=== PATIENT | male | born 1960 | race Caucasian/White ===

== ENCOUNTER 2016-12-06 08:41 | Emergency (ER) | payer BC ==
[~2016-12-06] VITALS: Ht 180.3 cm; Wt 84.7 kg
[~2016-12-06 08:41] MED LIST: APIX1TAB3 PO; BTP80 PO
[2016-12-06 08:46] VITALS: TEMP 36.6; Ht 180.3 cm; Wt 84.7 kg
[2016-12-06] MEDS ORDERED: CEPHALEXIN MONOHYDRATE 250 MG CAP PO ONE (09:30)
[2016-12-06] MEDS ORDERED: DIPHTHERIA/TETANUS/PERTUSSIS 0.5 ML SYR/VIAL IM. ONE (09:30)
[2016-12-06] MEDS ORDERED: CEPH500C PO (09:46)
--- NOTE | 2016-12-06 09:46 | EMERGENCY ROOM VISIT NOTE ---
ED Visit Note First contact with patient: 08:49 Chief Complaint: RIGHT Hand Laceration History of Present Illness: This patient is a 55-year-old male who presents to the Emergency Department this morning for evaluation of their RIGHT laceration. Patient sustained the laceration while using a sharpener to sharpen the blades of a planer. This occurred at 8:30 last evening. They report a moderate amount of bleeding initially. They deny any numbness or tingling into the distal extremity. They report no decreased range of motion of the affected digit. They have tried nothing for the pain. Patient rates his current discomfort as a 4/10. Patient is currently on Coumadin for atrial fibrillation. He woke today and his thought that maybe he should have the wound evaluated. He denies any redness, swelling, discharge, or drainage. Patient's Tetanus status is not currently up-to-date. Medications: Reviewed and discussed with the patient. Allergies: Statins PMH: No pertinent past medical history. SHx: Patient is a 55-year-old male who lives locally. ROS: All pertinent positive and negative review of systems are appropriately documented in the History of Present Illness. Physical Exam: VITAL SIGNS - Vital signs and nursing notes were reviewed. GENERAL - 55-year-old male appearing his stated age who is in no acute distress. Communicates well with provider and answers questions appropriately. SKIN - There is a 2.5 cm long laceration noted over the MCP of the RIGHT fifth digit. The wound has begun to heal with mild serosynovitis discharge noted. Wound does not gape open with traction. No active bleeding noted. No surrounding erythema or purulent discharge. MUSCULOSKELETAL - Laceration as described above. +5/5 strength appreciated of the affected digit. Full range of motion of the affected digit. NEUROLOGIC - Spinothalamic tract was found to be intact with ability to discriminate sharp versus dull sensation. No sensory defects of the dorsal column were appreciated utilizing light touch for evaluation. VASCULAR - Capillary refill was brisk. ED Course: Patient was seen and evaluated by myself. I had a lengthy discussion with the patient regarding symptoms and treatment. Given the delayed treatment sought out for the laceration, I do feel the closure is not the best idea as certainly the patient is at greater risk for developing secondary infection. I did discuss this with the patient. The wound was cleansed with Betadine and Steri- Strips were placed for comfort. Patient was provided a splint to help decrease wound dehiscence. He was provided a prescription for Keflex. He received his Adacel vaccination in the emergency department. Patient was educated on worrisome symptoms for return visit to the emergency department. Patient discharged home in good condition. Impression: RIGHT Hand Laceration with Delay in Treatment Discharge Instructions: You've been seen in the emergency department today for a laceration of the RIGHT hand. Please allow the Steri-Strips to remain in place for the next several days. Please wear the splint for comfort until the sutures are removed. Proper wound care is essential for adequate wound healing and infection prevention. You can shower and clean the wound with soap and water. Do not scour over the wound, pat dry with a towel. Do not submerse the wound (i.e. bathe or dish wash) until the sutures have been removed. You can use an antibiotic ointment with a dressing over the wound for the next 3-4 days. After this time you may leave the wound dry and open to the air. If crust develops over the wound you can use a Q-tip to apply a 1:1 peroxide:water solution to clean the wound. Look for signs of infection of the wound including: increased pain, swelling, foul discharge, streaking, or increased temperature. If any of these are noticed you should return to the Emergency Department for further assessment and treatment. As with any laceration you may have received nerve damage to the surrounding tissues. This damage may or may not be permanent. You should keep the area covered with sunscreen for the first 6 months to 1 year when at risk for exposure to help minimize scarring. You can also use scar reducing creams or Vitamin E oil to help minimize scarring. You were prescribed Keflex to be taken as prescribed. This is an antibiotic. All antibiotics have the potential to cause diarrhea. Stop this medication and contact a medical provider if you were to develop any significant adverse side effects including: wheezing, shortness of breath, passing out, vomiting, or a diffuse rash. Always take antibiotics as directed and COMPLETE the ENTIRE course regardless of the improvement of your symptoms. For pain control, you can use the following offj-vzy-bbbqcoy medicines (if >12 yo): - Regular strength (325mg/tab) Tylenol (acetaminophen) 2 tabs every 4-6 hours as needed. Do not exceed 12 tablets in a 24 hour period. Avoid taking more than 4 grams (4000 mg) of Tylenol per day. This includes any other sources of acetaminophen you may take on a regular basis. - Regular strength (200 mg/tab) Advil (ibuprofen) 1-2 tabs every 4-6 hours as needed. Do not exceed a dose of 3200 mg per day. Return to the emergency department if your symptoms worsen despite treatment course outlined above. Problem List Medical Problems: (1) History of cardioversion Status: Chronic (2) HTN (hypertension) Status: Chronic (3) Hyperlipidemia Status: Chronic (4) Paroxysmal atrial fibrillation Status: Chronic Surgical Problems: (1) H/O colonoscopy Status: Chronic (2) H/O eye surgery Status: Chronic (3) History of dental surgery Status: Chronic (4) S/P surgical manipulation of ankle joint Status: Chronic Current/Historical Medications Scheduled Apixaban (Eliquis), 5 MG PO BID Cephalexin Monohydrate (Keflex), 500 MG PO QID Sotalol HCl (Sotalol HCl), 80 MG PO BID Allergies Coded Allergies: Statins (Verified Allergy, Severe, MUSCLE CRAMPS, WEAKNESS, 10/05/16) Vital Signs Date Time Temp Pulse Resp B/P Pulse Ox O2 Delivery O2 Flow Rate FiO2 12/06/16 10:07 49 16 161/92 98 12/06/16 08:46 36.6 56 18 158/96 98 Room Air Medications Administered Medications (Trade) Dose Ordered Sig/Juventino Route Start Time Stop Time Status Last Admin Dose Admin Cephalexin Monohydrate (Keflex Cap) 500 mg NOW ONCE PO 12/06/16 09:30 12/06/16 09:34 DC 12/06/16 09:58 500 MG Diphtheria/ Pertussis/Tetanus Vacc (Adacel Inj) 0.5 ml ONCE ONCE IM. 12/06/16 09:30 12/06/16 09:34 DC 12/06/16 09:59 0.5 ML Departure Information Impression Primary Impression: Laceration of right hand with delay in treatment Dispostion Home / Self-Care Condition GOOD Prescriptions Cephalexin Monohydrate (Keflex) 500 Mg Cap 500 MG PO QID for 7 Days, #28 CAP Prov: Dave Miranda, PAGeorges 12/06/16 Referrals Jaime Samuel III, M.D. (PCP) Patient Instructions My [facility] Additional Instructions You've been seen in the emergency department today for a laceration of the RIGHT hand. Please allow the Steri-Strips to remain in place for the next several days. Please wear the splint for comfort until the sutures are removed. Proper wound care is essential for adequate wound healing and infection prevention. You can shower and clean the wound with soap and water. Do not scour over the wound, pat dry with a towel. Do not submerse the wound (i.e. bathe or dish wash) until the sutures have been removed. You can use an antibiotic ointment with a dressing over the wound for the next 3-4 days. After this time you may leave the wound dry and open to the air. If crust develops over the wound you can use a Q-tip to apply a 1:1 peroxide:water solution to clean the wound. Look for signs of infection of the wound including: increased pain, swelling, foul discharge, streaking, or increased temperature. If any of these are noticed you should return to the Emergency Department for further assessment and treatment. As with any laceration you may have received nerve damage to the surrounding tissues. This damage may or may not be permanent. You should keep the area covered with sunscreen for the first 6 months to 1 year when at risk for exposure to help minimize scarring. You can also use scar reducing creams or Vitamin E oil to help minimize scarring. You were prescribed Keflex to be taken as prescribed. This is an antibiotic. All antibiotics have the potential to cause diarrhea. Stop this medication and contact a medical provider if you were to develop any significant adverse side effects including: wheezing, shortness of breath, passing out, vomiting, or a diffuse rash. Always take antibiotics as directed and COMPLETE the ENTIRE course regardless of the improvement of your symptoms. For pain control, you can use the following uojm-rdo-reauhpf medicines (if >12 yo): - Regular strength (325mg/tab) Tylenol (acetaminophen) 2 tabs every 4-6 hours as needed. Do not exceed 12 tablets in a 24 hour period. Avoid taking more than 4 grams (4000 mg) of Tylenol per day. This includes any other sources of acetaminophen you may take on a regular basis. - Regular strength (200 mg/tab) Advil (ibuprofen) 1-2 tabs every 4-6 hours as needed. Do not exceed a dose of 3200 mg per day. Return to the emergency department if your symptoms worsen despite treatment course outlined above. Problem Qualifiers Primary Impression: Laceration of right hand with delay in treatment Encounter type: initial encounter Qualified Codes: S61.411A - Laceration without foreign body of right hand, initial encounter
[2016-12-06 10:07] VITALS: BP 161/92; PULSE 49; O2SAT 98
== END 2016-12-06 10:09 | disposition home or self-care (01) ==
LOC: C.EDB 08:42 → C.EDA 10:09
DX: S61.411A Laceration without foreign body of right hand, initial encounter (principal); E78.5 Hyperlipidemia, unspecified; I48.0 Paroxysmal atrial fibrillation; I10 Essential (primary) hypertension; W27.8XXA Contact with other nonpowered hand tool, initial encounter; Y93.H3 Activity, building and construction; Y92.89 Other specified places as the place of occurrence of the external cause; Y99.8 Other external cause status

== ENCOUNTER 2017-04-20 07:28 | Emergency (ER) | payer BC ==
[~2017-04-20] VITALS: Ht 180.3 cm; Wt 84.0 kg
[2017-04-20] MEDS ORDERED: SODIUM CHLORIDE 0.9% 1000ML 1,000 ML IV STA (07:40)
[2017-04-20] MEDS ORDERED: METOPROLOL TARTRATE 1 MG/ML VIAL IV STA (07:40)
--- NOTE | 2017-04-20 07:45 | EMERGENCY ROOM VISIT NOTE ---
History First contact with patient: 07:33 Chief Complaint: CARDIAC ASSESSMENT Stated Complaint: A FIB Nursing Triage Summary: triage note: pt reports "i am in a-fib again, it started around 0430." pt reports he had heart ablasion done on mar 28 2017 at [facility] [place]. History of Present Illness The patient is a 56 year old male who presents to the Emergency Room with complaints of chest pressure and irregular heartbeat. The patient has a history of paroxysmal atrial fibrillation. He has been admitted several times in the past. He had been on metoprolol and then switched to sotalol. He has had direct A/C cardioversion on several occasions. He underwent heart ablation on March 28 at [facility] by Dr. bryan. He is not taking Beta Ponce now. He is taking Eliquis and has not missed any doses. He states that he has done well until this morning around 4:30 AM. He states that he felt himself go into atrial fibrillation. He reports associated heart pressure and describes it as palpitations. He reports associated shortness of breath. He states that he recently had cataract surgery and has been on several eyedrops. He was also recently started on amlodipine but did not take it today. He denies any fevers, earache, sore throat or cough. He denies any abdominal pain , nausea or vomiting. He denies any extremity swelling. Review of Systems A 10 system review of systems was completed with positives and pertinent negatives listed in the HPI. Past Medical/Surgical History Medical Problems: (1) ankle restructure (2) History of cardioversion (3) HTN (hypertension) (4) Hyperlipidemia (5) Paroxysmal atrial fibrillation Surgical Problems: (1) H/O colonoscopy (2) H/O eye surgery (3) History of dental surgery (4) S/P surgical manipulation of ankle joint Family History FH: arrhythmia FATHER FH: heart failure MOTHER (right sided HF) Social History Smoking Status: Never Smoker Alcohol Use: occasionally Drug Use: none Marital Status: Housing Status: lives with significant other Occupation Status: employed Current/Historical Medications Scheduled Amlodipine (Norvasc), 5 MG PO DAILY Apixaban (Eliquis), 5 MG PO BID Carvedilol (Coreg), 1 TAB PO BID Allergies Coded Allergies: Statins (Verified Allergy, Severe, MUSCLE CRAMPS, WEAKNESS, 04/20/17) Physical Exam Vital Signs Date Time Temp Pulse Resp B/P (MAP) Pulse Ox O2 Delivery O2 Flow Rate FiO2 04/20/17 11:00 62 16 142/86 (104) 96 Room Air 04/20/17 10:45 66 16 132/88 (103) 96 Room Air 04/20/17 10:30 68 16 138/93 (108) 96 Room Air 04/20/17 10:25 68 16 114/89 (97) 96 Room Air 04/20/17 10:15 68 16 114/88 (97) 96 Room Air 04/20/17 10:10 66 16 114/80 (91) 96 Room Air 04/20/17 10:05 65 16 114/82 (93) 96 Room Air 04/20/17 10:00 66 16 112/68 (83) 96 Room Air 04/20/17 09:55 86 16 101/72 (82) 96 Room Air 04/20/17 09:50 86 16 104/79 (87) 96 Room Air 04/20/17 09:47 80 16 118/80 99 Nasal Cannula 6 04/20/17 09:46 133 16 114/82 99 Nasal Cannula 6 04/20/17 09:17 36.7 133 16 144/88 100 Nasal Cannula 4 04/20/17 08:44 121 17 102/83 95 Room Air 04/20/17 08:07 129 17 134/98 96 Room Air 04/20/17 08:00 139 16 123/89 96 Room Air 04/20/17 07:53 139 16 135/95 98 Room Air 04/20/17 07:47 132 141/103 04/20/17 07:46 160 04/20/17 07:31 36.7 141 18 153/114 95 Room Air Physical Exam VITALS: Vitals are noted on the nurse's note and reviewed by myself. The patient is hypertensive and tachycardic. His blood pressure is 153/114 and his heart rate is 141 bpm. GENERAL: This is a 56-year-old male, in no acute distress, nondiaphoretic, well- developed well-nourished. SKIN: The skin was without rashes, erythema, edema, or bruising. There is no tenting of the skin. Capillary reflex less than 2 seconds. HEAD: Normocephalic atraumatic. EARS: External ears are normal in appearance. EYES: Pupils equal round and reactive to light and accommodation. Conjunctivae without injection, sclerae without icterus. Extraocular movements intact. NOSE: Patent, turbinates without inflammation or discharge. MOUTH: Mucous membranes moist. Tonsils are not enlarged. Pharynx without erythema or exudate. Uvula midline. Airway patent. Tongue does not deviate. NECK: Supple without nuchal rigidity. No lymphadenopathy. No thyromegaly. Cervical spine is nontender. No JVD. HEART: Fast rate, irregularly irregular rhythm. No rubs, murmurs or gallops. LUNGS: Clear to auscultation bilaterally without wheezes, rales or rhonchi. No retractions or accessory muscle use. ABDOMEN: Positive bowel sounds x 4. Soft, nontender, without masses or organomegaly. Malcolm sign negative. MUSCULOSKELETAL: No muscle atrophy, erythema, or edema noted. Full range of motion in all extremities. Strength 5/5 throughout. NEURO: Patient was alert and oriented to person place and time. No focal neurological deficits. Medical Decision & Procedures ER Provider Diagnostic Interpretation: CHEST ONE VIEW PORTABLE CLINICAL HISTORY: chest pressure, a fib COMPARISON STUDY: 10/05/2016 FINDINGS: The bones soft tissues and hemidiaphragms are normal. The cardiomediastinal silhouette is normal. The lungs are clear. The pulmonary vasculature is normal. IMPRESSION: Negative chest. Laboratory Results 04/20/17 07:35 Red Blood Count 5.12, Mean Corpuscular Volume 89.5, Mean Corpuscular Hemoglobin 31.8, Mean Corpuscular Hemoglobin Concent 35.6, Mean Platelet Volume 10.0, Neutrophils (%) (Auto) 63.9, Lymphocytes (%) (Auto) 21.5, Monocytes (%) (Auto) 11.8, Eosinophils (%) (Auto) 2.0, Basophils (%) (Auto) 0.6, Neutrophils # (Auto ) 4.06, Lymphocytes # (Auto) 1.37, Monocytes # (Auto) 0.75, Eosinophils # (Auto ) 0.13, Basophils # (Auto) 0.04 04/20/17 07:35 Test 04/20/17 07:35 White Blood Count 6.36 K/uL (4.8-10.8) Red Blood Count 5.12 M/uL (4.7-6.1) Hemoglobin 16.3 g/dL (14.0-18.0) Hematocrit 45.8 % (42-52) Mean Corpuscular Volume 89.5 fL (80-100) Mean Corpuscular Hemoglobin 31.8 pg (25-34) Mean Corpuscular Hemoglobin Concent 35.6 g/dl (32-36) Platelet Count 166 K/uL (130-400) Mean Platelet Volume 10.0 fL (7.4-10.4) Neutrophils (%) (Auto) 63.9 % Lymphocytes (%) (Auto) 21.5 % Monocytes (%) (Auto) 11.8 % Eosinophils (%) (Auto) 2.0 % Basophils (%) (Auto) 0.6 % Neutrophils # (Auto) 4.06 K/uL (1.4-6.5) Lymphocytes # (Auto) 1.37 K/uL (1.2-3.4) Monocytes # (Auto) 0.75 K/uL (0.11-0.59) Eosinophils # (Auto) 0.13 K/uL (0-0.5) Basophils # (Auto) 0.04 K/uL (0-0.2) RDW Standard Deviation 41.8 fL (36.4-46.3) RDW Coefficient of Variation 12.8 % (11.5-14.5) Immature Granulocyte % (Auto) 0.2 % Immature Granulocyte # (Auto) 0.01 K/uL (0.00-0.02) Prothrombin Time 10.4 SECONDS (9.0-12.0) Prothromb Time International Ratio 1.0 (0.9-1.1) Activated Partial Thromboplast Time 29.4 SECONDS (21.0-31.0) Partial Thromboplastin Ratio 1.1 Anion Gap 9.0 mmol/L (3-11) Est Creatinine Clear Calc Drug Dose 91.5 ml/min Estimated GFR () 102.0 Estimated GFR (Non- 88.0 BUN/Creatinine Ratio 14.2 (10-20) Calcium Level 8.5 mg/dl (8.5-10.1) Magnesium Level 1.9 mg/dl (1.8-2.4) Total Bilirubin 0.5 mg/dl (0.2-1) Aspartate Amino Transf (AST/SGOT) 18 U/L (15-37) Alanine Aminotransferase (ALT/SGPT) 29 U/L (12-78) Alkaline Phosphatase 101 U/L (45-117) Total Creatine Kinase 88 U/L (39-308) Creatine Kinase MB 1.7 ng/ml (0.5-3.6) Creatine Kinase MB Ratio 1.9 (0-3.0) Troponin I < 0.015 ng/ml (0-0.045) Total Protein 7.1 gm/dl (6.4-8.2) Albumin 3.8 gm/dl (3.4-5.0) Globulin 3.3 gm/dl (2.5-4.0) Albumin/Globulin Ratio 1.2 (0.9-2) Medications Administered Medications (Trade) Dose Ordered Sig/Juventino Route Start Time Stop Time Status Last Admin Dose Admin Sodium Chloride 1,000 ml @ 999 mls/hr Q1H1M STAT IV 04/20/17 07:40 04/20/17 08:40 DC 04/20/17 07:48 999 MLS/HR Metoprolol Tartrate (Lopressor Iv) 15 mg NOW STAT IV 04/20/17 07:40 04/20/17 07:42 DC 04/20/17 07:47 5 MG Procedure The patient was monitored on a monitoring analyst. This reveals atrial fibrillation with rapid ventricular response. ECG Indication: palpitations Rate (beats per minute): 150 Rhythm: atrial fibrillation Findings: no acute ischemic change Change: Previous tracings have indicated a fib ED Course The patient was seen and examined. Previous visits were reviewed. The patient does not have a fever or leukocytosis. He does not have any significant electrolyte abnormalities. Troponin was not elevated. Cardiac enzymes were not elevated. INR was 1.0. EKG reveals atrial fibrillation with rapid ventricular response. The patient's rate was as high as 160 bpm. The patient was given a total of 15 mg IV Lopressor in 5 mg doses. The A. fib with rapid ventricular response persisted but the rate was slightly improved around 120 bpm. I discussed the case with Dr. Webster. He plan to take the patient for cardioversion today. The patient was advised of this. The case was discussed with Dr. Quan who agrees with the assessment and treatment plan. Medical Decision DIFFERENTIAL DIAGNOSIS: Aortic dissection, myocarditis, pericarditis, cervical disc disease, costochondritis, herpes zoster, rib fracture, pleuritis, pneumonia , pulmonary embolus, tension pneumothorax, anxiety disorder, somatoform disorder , choledocholithiasis, status, esophagitis, esophageal spasm, esophageal reflux , esophageal rupture, pancreatitis, peptic ulcer disease, cardiac ischemia, ST elevation [place], acute coronary syndrome, arrhythmia, coronary artery vasospasm. vavular heart disease, coronary artery disease, among others. Impression Primary Impression: Atrial fibrillation with rapid ventricular response Additional Impression: Substernal chest pain Critical Care I have personally spent greater than 35 minutes of critical care time in the direct management of this patient. This includes bedside care, interpretation of diagnostic studies, and testing, discussion with consultants, patient, and family members, and other required patient management activities. This 30 minutes is in excess of all separately billable procedures. Departure Information Prescriptions Carvedilol (COREG) 3.125 Mg Tab 1 TAB PO BID for 30 Days, #60 TAB 3 Refills Prov: Kam Webster M.D. 04/20/17 Referrals Jaime Samuel III, M.D. (PCP) Patient Instructions My [facility] Problem Qualifiers
[2017-04-20] MEDS ORDERED: AMLO-110 PO (07:49)
[2017-04-20 07:52] LABS: BASO % 0.6 %; BASO ABS # 0.04 K/uL (0-0.2); COMPLETE YES; HEMATOCRIT 45.8 % (42-52); IG% 0.2 %; LYMPH % 21.5 %; LYMPH ABS # 1.37 K/uL (1.2-3.4); MEAN CELL VOLUME 89.5 fL (80-100); MEAN CORPUSCULAR HEMOGLOBIN 31.8 pg (25-34); MEAN CORPUSCULAR HGB CONC 35.6 g/dl (32-36); MONO % 11.8 %; NEUT % 63.9 %; PLATELET COUNT 166 K/uL (130-400); RED BLOOD COUNT 5.12 M/uL (4.7-6.1); WHITE BLOOD COUNT 6.36 K/uL (4.8-10.8)
[2017-04-20 08:02] LABS: PARTIAL THROMBOPLASTIN RATIO 1.1; PROTHROMBIN TIME (PATIENT) 10.4 SECONDS (9.0-12.0)
[2017-04-20 08:15] LABS: ALT/SGPT 29 U/L (12-78); BLOOD UREA NITROGEN 14 mg/dl (7-18); BUN/CREATININE RATIO 14.2 (10-20); CARBON DIOXIDE 24 mmol/L (21-32); CHLORIDE 110 mmol/L (98-107); CREATININE 0.96 mg/dl (0.60-1.40); GLUCOSE 112 mg/dl (70-99); MAGNESIUM 1.9 mg/dl (1.8-2.4); POTASSIUM 4.2 mmol/L (3.5-5.1); SODIUM 143 mmol/L (136-145)
--- NOTE | 2017-04-20 08:18 | DIAGNOSTIC IMAGING REPORT ---
CHEST ONE VIEW PORTABLE CLINICAL HISTORY: chest pressure, a fib COMPARISON STUDY: 10/05/2016 FINDINGS: The bones soft tissues and hemidiaphragms are normal. The cardiomediastinal silhouette is normal. The lungs are clear. The pulmonary vasculature is normal. IMPRESSION: Negative chest. Electronically signed by: Ritchie Mendiola M.D. 04/20/2017 8:16 AM Dictated Date/Time: 04/20/2017 8:12 AM
[2017-04-20 08:20] LABS: ALB/GLOB RATIO 1.2 (0.9-2); ALKALINE PHOSPHATASE 101 U/L (45-117); AST/SGOT 18 U/L (15-37); CKMB/CK RATIO 1.9 (0-3.0)
[2017-04-20 08:22] LABS: CALCIUM 8.5 mg/dl (8.5-10.1)
[2017-04-20 08:44] VITALS: O2SAT 95
[2017-04-20 09:15] VITALS: Ht 180.3 cm; Wt 84.0 kg
[2017-04-20 09:17] VITALS: BP 144/88; PULSE 133; TEMP 36.7; O2SAT 100
--- NOTE | 2017-04-20 09:33 | CARDIOLOGY CONSULTATION ---
DATE OF CONSULTATION: 04/20/2017 DATE OF CONSULTATION: 04/20/2017. REFERRING: Adelaida Segura. INDICATIONS: Atrial fibrillation with rapid ventricular response. PRIMARY CARE PHYSICIAN: Dr. Samuel. HISTORY OF PRESENT ILLNESS: The patient is a 56-year-old male whose past history is notable for paroxysmal atrial fibrillation status post pulmonary vein isolation ablation on 03/28/2017, history of hypertension, hyperlipidemia who presents now noting last evening having awakened from sleep early with symptoms of heart palpitations and mild diaphoresis. He was found to be in atrial fibrillation, very rapid ventricular response. In the past, he has required antiarrhythmic therapy for control of rhythms with sotalol, though with poor tolerance of antiarrhythmic due to bradycardia and fatigue. At the time of his ablation sotalol was discontinued. He presents now to the Emergency Room in atrial fibrillation with rapid ventricular response. He has received 3 doses of IV metoprolol with little slowing of the heart. He notes no other complaints. Notes no shortness of breath. Notes no recent fevers, chills. Notes no productive cough. Notes no melena, hematochezia, dysuria or hematuria. Overall has been doing relatively well other than increase in blood pressure since discontinuing sotalol. He notes he was begun on amlodipine at time of hospital discharge and taking this without absolute control of hypertension per his description, otherwise has been feeling well. Notes no bleeding difficulties. Notes no headache or visual changes. Notes no acute neurologic complaints. Notes no exertional chest pains. ALLERGIES: NOTED TO BE ATORVASTATIN. MEDICATIONS: Prior to hospitalization were amlodipine 5 mg per day, Eliquis 5 mg twice per day. PAST SURGICAL HISTORY: Notable for prior cataract insertion on the right, pulmonary vein isolation ablation as described on 03/28/2017, ankle arthroscopic surgery in 2013, remote retinal vitrectomy in 1986. FAMILY HISTORY: Positive for paroxysmal atrial fibrillation. SOCIAL HISTORY: The patient is a nonsmoker, having discontinued in 1984. He uses occasional alcoholic beverages. PHYSICAL EXAMINATION: GENERAL: The patient is a pleasant, age appropriate male denying acute distress though heart rate ranges between 120 and 145 while lying supine in the Emergency Room, blood pressure is 108/60. HEAD, EYES, EARS, NOSE, AND THROAT EXAMINATION: Normocephalic, atraumatic. Nares without discharge. Throat was clear. NECK: Supple without thyromegaly, lymphadenopathy, JVD or bruit. LUNGS: Clear to auscultation. There is no rhonchi, rale or wheeze. CARDIOVASCULAR EXAMINATION: Irregular, irregular. There is no S3 gallop. There is no audible rub. PMI is nondisplaced. ABDOMEN: Soft, nontender, no palpable hepatosplenomegaly. There is no hepatojugular reflux. EXTREMITIES: Without cyanosis or clubbing. There is no peripheral edema. There are intact distal pulses 2/4. LABORATORY DATA: White cell count 6.3, hemoglobin 16.3, sodium is 143, potassium is 4.2, chloride is 110, bicarbonate 24, BUN is 14, creatinine 0.96, glucose is 112. CK-MB and troponins are normal. Albumin 3.8. Chest x-ray reveals normal size cardiac silhouette, no infiltrate. EKG reveals atrial fibrillation with rapid ventricular response, rate 150. IMPRESSION: A 56-year-old male with history of paroxysmal atrial fibrillation and recent pulmonary vein isolation ablation approximately 3 weeks prior with now relapse into atrial fibrillation off antiarrhythmic therapy. Discussed options of management. Recommend proceeding directly to synchronized electrical cardioversion. The patient has undergone similar procedures before. He is aware of risks of procedures and explained once again in detail. Informed consent obtained. Will plan on proceeding with cardioversion and adjusting medications as appropriate post procedure.
[2017-04-20 09:46] VITALS: BP 114/82; PULSE 133; O2SAT 99
[2017-04-20 09:47] VITALS: BP 118/80; PULSE 80; O2SAT 99
--- NOTE | 2017-04-20 09:53 | Cardiology Procedure Brief Nt ---
Preliminary Cardiology Note Procedure Date Apr 20, 2017. 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
[2017-04-20] MEDS ORDERED: CARV3.122 PO (10:46)
--- NOTE | 2017-04-20 10:49 | Discharge Instructions ---
Discharge Instructions Procedure Procedure Date: Apr 20, 2017. Reason for Visit: A FIB. Discharge Discharge Date: Apr 20, 2017. Discharge Diagnosis: Successful synchronized electrical cardioversion Problem List: Atrial fibrillation with rapid ventricular response Last Recorded Wt (Kilograms): 84 Anesthesia Post Anesthesia Instructions: If you have had General Anesthesia or IV Sedation: * Do not drive today. * Resume driving when surgeon permits. * Do not make important decisions or sign legal documents today. * Call surgeon for: 1. Temperature elevations greater than 101 degrees F. 2. Uncontrollable pain. 3. Excessive bleeding. 4. Persistent nausea and vomiting. 5. Medication intolerance (nausea, vomiting or rash). * For nausea and vomiting use only clear liquids such as: tea, soda, bouillon until nausea subsides, then gradually increase diet as tolerated. * If you have any concerns or questions, call your surgeon's office. If physician is unavailable and it is an emergency, call 911 or go to the nearest emergency room. Instructions Activity Recommendations: limitations as noted below Recommended Home Diet: resume previous diet Allergies: Coded Allergies: Statins (Verified Allergy, Severe, MUSCLE CRAMPS, WEAKNESS, 04/20/17) Provider Instructions ACTIVITY RECOMMENDATIONS: Resume activities as tolerated with no limitations unless specified. __ No lifting over __ pounds for 24 hours. __ Do not engage in vigorous exercise, sexual activity, or sports for 24 hours. __ Do not drive or operate any motorized equipment for 24 hours. __ You may return to work/school tomorrow. Follow Up Follow-up with: Dr Roman 04/25/2017 Kyree English Recommendations: Call your doctor if: * Temperature above 101 degrees * Pain not relieved by pain medicine ordered * There is increased drainage or redness from any incision * You have any unanswered questions or concerns. Your Doctors Instructions noted above were prepared by provider Kam Webster. Patient Signature Section: Patient Instructions Signature Page Sunil Oswald Patient (or Guardian) Signature/Date: I have read and understand the instructions given to me by my caregivers. Caregiver/RN/Doctor Signature/Date: The above-named patient and/or guardian has received patient instructions on this date. + Original Patient Signature Page (only) stays with chart. Please make copy for patient.
[2017-04-20 11:00] VITALS: BP 142/86; PULSE 62; O2SAT 96
[2017-04-20] MEDS ORDERED: CARVEDILOL 3.125 MG TAB PO ONE (11:00)
--- NOTE | 2017-04-20 12:34 | CARDIOVERSION ---
DATE OF OPERATION: 04/20/2017 SYNCHRONIZED ELECTRICAL CARDIOVERSION DATE OF PROCEDURE: 04/20/2017. INDICATIONS: Atrial fibrillation with rapid ventricular response. BRIEF HISTORY: The patient is a 56-year-old male with a history of paroxysmal atrial fibrillation status post pulmonary vein isolation ablation in March 2017. At that time antiarrhythmic therapy was held. He notes having done well until early this morning when he awakened with tachypalpitations and presented to the ER with atrial fibrillation with rapid ventricular response, rates 150-160. He is referred now for elective synchronized cardioversion. PROCEDURE: After the procedure and risks were explained in detail to the patient informed consent was obtained. Synchronized electrical cardioversion was then performed after anesthesia consultation and sedation with continuous heart rate, blood pressure and oxygen saturation monitoring. The patient received single 150 joule biphasic synchronized shock with successful conversion to sinus rhythm. EKG post procedure demonstrated sinus rhythm at a rate of 67, QT corrected at 414 with essentially normal tracing. RECOMMENDATIONS: Continued medical therapy. He does note recent increase in blood pressure. Will continue amlodipine at 5 mg per day, continue Eliquis at 5 mg twice per day as previously ordered. Initiate carvedilol at 3.125 mg twice per day with initial dose given prior to discharge. Followup is scheduled both through electrophysiology and through cardiology, electrophysiology in 1 weeks time and cardiology in 1 months time. I attest to the content of the Intraoperative Record and any orders documented therein. Any exception s are noted below.
== END 2017-04-20 09:03 | disposition home or self-care (01) ==
LOC: C.EDB 07:30 → C.EDA 09:03
DX: I48.0 Paroxysmal atrial fibrillation (principal); R07.2 Precordial pain; I10 Essential (primary) hypertension; E78.5 Hyperlipidemia, unspecified; Z82.49 Family history of ischemic heart disease and other diseases of the circulatory system

== ENCOUNTER → 2017-05-21 | Outpatient (CLI) | payer BC ==
[~2017-05-21] MED LIST changes: +AMLO-110 PO; -BTP80 PO; +CARV3.122 PO
--- NOTE | 2017-05-21 09:15 | DIAGNOSTIC IMAGING REPORT ---
LEFT KNEE 4 OR MORE HISTORY:56 yearsMaleLEFT KNEE PAIN AND SWELLING COMPARISON: Bilateral knee radiographs 05/06/2014 TECHNIQUE: AP standing radiographs of the bilateral knees with lateral, tunnel and sunrise views of the left knee. FINDINGS: Moderate joint space narrowing of the medial compartment right knee with marginal spurring is redemonstrated, similar from comparison. There is only mild tricompartmental osteoarthritis of the left knee, most pronounced within the patellofemoral joint. There are 2 corticated densities anterior to the tibia measuring up to 7 and 2 mm respectively would suggest loose bodies. There is moderate amount of prepatellar soft tissue swelling with small joint effusion. No acute fracture or dislocation is identified. IMPRESSION: 1. No acute fracture or dislocation. 2. Moderate amount of prepatellar soft tissue swelling with small joint effusion about the left knee. 3. Corticated ossifications anterior to the proximal tibia suggest loose bodies. The above report was generated using voice recognition software. It may contain grammatical, syntax or spelling errors. Electronically signed by: Sarthak Bruce M.D. 05/21/2017 9:14 AM Dictated Date/Time: 05/21/2017 9:11 AM
== END | disposition home or self-care (01) ==
LOC: C.RDSM 12:55
PROVIDERS: ATTEND Internal Medicine
DX: M25.562 Pain in left knee (principal); M25.462 Effusion, left knee

== ENCOUNTER 2017-08-14 07:39 | Emergency (ER) | payer BC ==
[~2017-08-14] VITALS: Ht 177.8 cm; Wt 83.6 kg
[2017-08-14 07:44] VITALS: TEMP 36.6; Ht 177.8 cm; Wt 83.6 kg
[2017-08-14 08:14] LABS: BASO % 0.7 %; BASO ABS # 0.05 K/uL (0-0.2); COMPLETE YES; EOS % 2.1 %; IG% 0.3 %; LYMPH % 21.2 %; LYMPH ABS # 1.44 K/uL (1.2-3.4); MEAN CELL VOLUME 90.7 fL (80-100); MEAN CORPUSCULAR HEMOGLOBIN 32.1 pg (25-34); MEAN CORPUSCULAR HGB CONC 35.4 g/dl (32-36); MEAN PLATELET VOLUME 10.3 fL (7.4-10.4); NEUT % 65.7 %; PLATELET COUNT 181 K/uL (130-400); RED BLOOD COUNT 5.29 M/uL (4.7-6.1)
[2017-08-14] MEDS ORDERED: CARV3.122 PO (08:14)
[2017-08-14] MEDS ORDERED: ETOMIDATE 2 MG/ML 20 ML VIAL IV STA (08:21)
[2017-08-14] MEDS ORDERED: ETOMIDATE 2 MG/ML 20 ML VIAL IV ONE (08:21)
[2017-08-14 08:27] LABS: PARTIAL THROMBOPLASTIN RATIO 1.2; PROTHROMBIN TIME (PATIENT) 10.7 SECONDS (9.0-12.0)
[2017-08-14 08:28] LABS: BLOOD UREA NITROGEN 17 mg/dl (7-18); BUN/CREATININE RATIO 17.7 (10-20); CARBON DIOXIDE 26 mmol/L (21-32); CHLORIDE 108 mmol/L (98-107); CREATININE 0.93 mg/dl (0.60-1.40); GLUCOSE 119 mg/dl (70-99); POTASSIUM 4.2 mmol/L (3.5-5.1); SODIUM 139 mmol/L (136-145)
[2017-08-14] MEDS ORDERED: ONDANSETRON INJ 2 MG/ML 2 ML VIAL IV STA (08:30)
[2017-08-14 08:33] LABS: CKMB/CK RATIO 2.6 (0-3.0)
--- NOTE | 2017-08-14 08:37 | DIAGNOSTIC IMAGING REPORT ---
CHEST ONE VIEW PORTABLE CLINICAL HISTORY: 56 years-old Male presenting with Evaluate Fever/Sepsis. TECHNIQUE: Portable upright AP view of the chest was obtained. COMPARISON: 04/20/2017. FINDINGS: Cardiomediastinal silhouette normal. Lungs and pleural spaces clear. Osseous structures normal. Upper abdomen normal. IMPRESSION: 1. No acute cardiopulmonary disease. Electronically signed by: Keagan Kelley M.D. 08/14/2017 8:36 AM Dictated Date/Time: 08/14/2017 8:35 AM
[2017-08-14 08:40] VITALS: BP 167/135; PULSE 140; O2SAT 100
--- NOTE | 2017-08-14 09:38 | EMERGENCY ROOM VISIT NOTE ---
History Report prepared by Davina: Adelaida Jones Under the Supervision of: Dr. Maxi Joe D.O. First contact with patient: 07:46 Chief Complaint: IRREGULAR HEARTBEAT Stated Complaint: A-FIB Nursing Triage Summary: I have a hx of Leticia ernst, felt myself go into it at 0400 this am. Denies CP. Verbalizes dyspnea at rest. Pt verbalizes he has had an ablation in March, has been cardioverted several times. History of Present Illness The patient is a 56 year old male who presents to the Emergency Room with complaints of a sudden irregular heartbeat that woke him at 0400 this morning. The patient reports a history of atrial fibrillation, noting he was diagnosed in 2014. He states that he has had 5 cardioversions since the diagnosis and additionally reports an ablation in March. The patient states that he was scheduled to see his domestic maid at [facility] today. He states that he experienced shortness of breath, palpitations, diaphoresis, and a cough when his symptoms began this morning. The patient states that he is on Eloquis. He denies any chest pain. Source of History: patient Onset: 0400 this morning Position: other (global) Quality: other (irregular heartbeat) Timing: other (sudden) Associated Symptoms: + diaphoresis, + cough, + SOB, No chest pain Note: Associated Symptoms: palpitations. Review of Systems See HPI for pertinent positives & negatives. A total of 10 systems reviewed and were otherwise negative. Past Medical & Surgical Medical Problems: (1) ankle restructure (2) History of cardioversion (3) HTN (hypertension) (4) Hyperlipidemia (5) Paroxysmal atrial fibrillation Surgical Problems: (1) H/O colonoscopy (2) H/O eye surgery (3) History of dental surgery (4) S/P surgical manipulation of ankle joint Family History FH: arrhythmia FATHER FH: heart failure MOTHER (right sided HF) Social History Smoking Status: Never Smoker Alcohol Use: occasionally Drug Use: none Marital Status: Housing Status: lives with significant other Occupation Status: employed Current/Historical Medications Scheduled Amlodipine (Norvasc), 5 MG PO DAILY Apixaban (Eliquis), 5 MG PO BID Carvedilol (Coreg), 3.125 MG PO BID Allergies Coded Allergies: Statins (Verified Allergy, Severe, MUSCLE CRAMPS, WEAKNESS, 08/14/17) Physical Exam Vital Signs Date Time Temp Pulse Resp B/P (MAP) Pulse Ox O2 Delivery O2 Flow Rate FiO2 08/14/17 09:49 81 18 133/95 97 08/14/17 09:14 68 20 159/106 98 Room Air 08/14/17 09:07 75 18 150/101 98 Room Air 08/14/17 09:01 159/128 08/14/17 09:00 66 18 100 Room Air 08/14/17 08:58 76 08/14/17 08:55 80 18 176/126 100 Nasal Cannula 2.0 08/14/17 08:51 172/118 08/14/17 08:50 137 12 149/117 96 Nasal Cannula 2.0 08/14/17 08:45 119 16 100 Nasal Cannula 2.0 08/14/17 08:40 110 12 100 Nasal Cannula 2.0 08/14/17 08:40 140 16 167/135 100 2.0 08/14/17 08:17 150 18 155/127 95 Nasal Cannula 2.0 08/14/17 07:49 97 Room Air 08/14/17 07:47 136 08/14/17 07:44 36.6 135 16 140/102 95 Room Air 08/14/17 07:44 97 Room Air Physical Exam CONSTITUTIONAL/VITAL SIGNS: Reviewed / noted above. GENERAL: Non-toxic in appearance. INTEGUMENTARY: Warm, dry, and [place]. HEAD: Normocephalic. EYES: without scleral icterus or trauma. ENT/OROPHARYNX: clear and moist. LYMPHADENOPATHY/NECK: Is supple without lymphadenopathy or meningismus. RESPIRATORY: Lungs clear and equal. CARDIOVASCULAR: Rapid, irregular heart rate. GI/ABDOMEN: Soft and nontender. No organomegaly or pulsatile mass. No rebound or guarding. Normal bowel sounds. EXTREMITIES: Warm and well perfused. BACK: No CVA tenderness. NEUROLOGICAL: Intact without focal deficits. PSYCHIATRIC: normal affect. MUSCULOSKELETAL: Normally developed with good muscle tone. Medical Decision & Procedures ER Provider Diagnostic Interpretation: Radiology results as stated below per my review and radiologist interpretation: CHEST ONE VIEW PORTABLE CLINICAL HISTORY: 56 years-old Male presenting with Evaluate Fever/Sepsis. TECHNIQUE: Portable upright AP view of the chest was obtained. COMPARISON: 04/20/2017. FINDINGS: Cardiomediastinal silhouette normal. Lungs and pleural spaces clear. Osseous structures normal. Upper abdomen normal. IMPRESSION: 1. No acute cardiopulmonary disease. Electronically signed by: Keagan Kelley M.D. 08/14/2017 8:36 AM Dictated Date/Time: 08/14/2017 8:35 AM Laboratory Results 08/14/17 07:50 Red Blood Count 5.29, Mean Corpuscular Volume 90.7, Mean Corpuscular Hemoglobin 32.1, Mean Corpuscular Hemoglobin Concent 35.4, Mean Platelet Volume 10.3, Neutrophils (%) (Auto) 65.7, Lymphocytes (%) (Auto) 21.2, Monocytes (%) (Auto) 10.0, Eosinophils (%) (Auto) 2.1, Basophils (%) (Auto) 0.7, Neutrophils # (Auto ) 4.47, Lymphocytes # (Auto) 1.44, Monocytes # (Auto) 0.68, Eosinophils # (Auto ) 0.14, Basophils # (Auto) 0.05 08/14/17 07:50 Test 08/14/17 07:50 White Blood Count 6.80 K/uL (4.8-10.8) Red Blood Count 5.29 M/uL (4.7-6.1) Hemoglobin 17.0 g/dL (14.0-18.0) Hematocrit 48.0 % (42-52) Mean Corpuscular Volume 90.7 fL (80-100) Mean Corpuscular Hemoglobin 32.1 pg (25-34) Mean Corpuscular Hemoglobin Concent 35.4 g/dl (32-36) Platelet Count 181 K/uL (130-400) Mean Platelet Volume 10.3 fL (7.4-10.4) Neutrophils (%) (Auto) 65.7 % Lymphocytes (%) (Auto) 21.2 % Monocytes (%) (Auto) 10.0 % Eosinophils (%) (Auto) 2.1 % Basophils (%) (Auto) 0.7 % Neutrophils # (Auto) 4.47 K/uL (1.4-6.5) Lymphocytes # (Auto) 1.44 K/uL (1.2-3.4) Monocytes # (Auto) 0.68 K/uL (0.11-0.59) Eosinophils # (Auto) 0.14 K/uL (0-0.5) Basophils # (Auto) 0.05 K/uL (0-0.2) RDW Standard Deviation 42.6 fL (36.4-46.3) RDW Coefficient of Variation 12.9 % (11.5-14.5) Immature Granulocyte % (Auto) 0.3 % Immature Granulocyte # (Auto) 0.02 K/uL (0.00-0.02) Prothrombin Time 10.7 SECONDS (9.0-12.0) Prothromb Time International Ratio 1.0 (0.9-1.1) Activated Partial Thromboplast Time 30.0 SECONDS (21.0-31.0) Partial Thromboplastin Ratio 1.2 Anion Gap 5.0 mmol/L (3-11) Est Creatinine Clear Calc Drug Dose 91.6 ml/min Estimated GFR () 106.0 Estimated GFR (Non- 91.4 BUN/Creatinine Ratio 17.7 (10-20) Calcium Level 9.0 mg/dl (8.5-10.1) Total Creatine Kinase 169 U/L (39-308) Creatine Kinase MB 4.4 ng/ml (0.5-3.6) Creatine Kinase MB Ratio 2.6 (0-3.0) Troponin I < 0.015 ng/ml (0-0.045) Laboratory results as stated above per my review. Medications Administered Medications (Trade) Dose Ordered Sig/Juventino Route Start Time Stop Time Status Last Admin Dose Admin Etomidate (Amidate Inj) 8 mg 0821 STAT IV 08/14/17 08:21 08/14/17 08:22 DC 08/14/17 08:50 8 MG Ondansetron HCl (Zofran Inj) 4 mg NOW STAT IV 08/14/17 08:30 08/14/17 08:31 DC 08/14/17 08:38 4 MG Procedure Indication: Atrial fibrillation with RVR Written consent was obtained after the risks and benefits were explained, including but not limited to pain, thermal burn, allergic reaction, aspiration, airway obstruction, laryngospasm, infection, hypotension, and cardiorespiratory arrest. At this time, the risks of the procedure are less than the risks of NOT performing the procedure. A time out was taken and the correct patient and procedure identified. The patient was on 100% via NRB and end tidal CO2 monitoring prior to the procedure. Suction, airway equipment, medications, respiratory equipment, ACLS cart, and appropriate personnel were prepared prior to the initiation of the procedure. Sedation was achieved utilizing 8 mg of IV Etomidate. The biphasic defibrillator was set to 150 joules of energy and synched. After confirmation of sedation and "all clear" safety check the synchronized shock was delivered. This resulted in successful conversion of the dysrhythmia back into sinus rhythm. See nursing notes for dosages and times. There were no complications and the patient recovered uneventfully from the procedure. There is no hypoxia, hypotension or arrhythmia. He was neurologically intact after the cardioversion. ECG Indication: other (irregular heartbeat) Rate (beats per minute): 131 Rhythm: atrial fibrillation (with RVR) Findings: no acute ischemic change, no ectopy Change: Repeat EKG shows sinus rhythm, 68 beats per minute, PAC, no acute injury. ED Course 0750: Previous medical records were reviewed. The patient was evaluated in room A9B. A complete history and physical examination was performed by Dr. Tinsley, Chess Instructor. 0806: Previous medical records were reviewed. The patient was evaluated in room A9B. A complete history and physical examination was performed. 0821: Ordered Etomidate 40 mg IV. 0830: Ordered Zofran Inj 4 mg IV. 0845: At this time, the patient was cardioverted by myself and Dr. Tinsley (PPG1 ). See procedure note for further detail. 0938: I reevaluated the patient and he is resting comfortably. I discussed the exam findings with him and I discussed the treatment plan. He verbalized complete understanding and agreement. He is ready to go home. Medical Decision Differentials considered include acute myocardial infarction, acute coronary syndrome, myocarditis, pericarditis, pericardial effusions /tamponade, esophageal perforation, thoracic aortic dissection, pulmonary embolism, pneumonia, pneumothorax, pancreatitis, shingles, acute cholecystitis, and perforated abdominal viscus. This is a 56-year-old male who presents to the ED with a chief complaint of rapid A. fib. The patient has a history of rapid A. fib. He reports that his last episode was in the summertime. The patient has required at least 5 electrical cardioversions since he has had intermittent atrial fibrillation. He states that medication does not seem to work and he has side effects to the medication. The patient developed a sudden onset of A. fib around 4 AM this morning associated with palpitations and shortness of breath as well as cough. The patient is currently on Eliquis and he has not missed any doses. The patient's blood work was unremarkable including CBC, chemistry panel and troponin. Chest x-ray is negative for acute disease. An EKG shows atrial fib with RVR without acute injury. Risks and benefits of both conscious sedation and she denies cardioversion were explained to the patient. He understands these risks and has had this done before. The patient was treated with etomidate 8 mg IV. The patient was drowsy with this although not completely sedated. Would suggest a higher dose if used for future sedation. Synchronized Electrical cardioversion was performed using 150 J. The patient was cardioverted into a sinus rhythm. His symptoms resolved and felt better. The patient was discharged home. Medication Reconcilliation Current Medication List: was personally reviewed by me Impression Primary Impression: Atrial fibrillation with rapid ventricular response Scribe Attestation The scribe's documentation has been prepared under my direction and personally reviewed by me in its entirety. I confirm that the note above accurately reflects all work, treatment, procedures, and medical decision making performed by me. Departure Information Dispostion Home / Self-Care Referrals No Doctor, Assigned (PCP) Forms Adult Anesthesia/Sedation, HOME CARE DOCUMENTATION FORM, IMPORTANT VISIT INFORMATION Patient Instructions My [facility] Additional Instructions Current medications. Follow-up with your doctor for further care and evaluation in 1-2 days. Return to the emergency department for worsening or new symptoms or any concerns. You have been examined and treated today on an emergency basis only. This is not a substitute for, or an effort to provide, complete comprehensive medical care. It is impossible to recognize and treat all injuries or illnesses in a single emergency department visit. It is therefore important that you follow up closely with your doctor. Call as soon as possible for an appointment.
[2017-08-14 09:49] VITALS: BP 133/95; PULSE 81; O2SAT 97
--- NOTE | 2017-08-14 13:12 | EMERGENCY ROOM VISIT NOTE ---
Pre-Mod Sedation Assessment General Date of Moderate Sedation: Aug 14, 2017. Vital Signs: Vital Signs Past 12 Hours Date Time Temp Pulse Resp B/P (MAP) Pulse Ox O2 Delivery O2 Flow Rate FiO2 08/14/17 09:49 81 18 133/95 97 08/14/17 09:14 68 20 159/106 98 Room Air 08/14/17 09:07 75 18 150/101 98 Room Air 08/14/17 09:01 159/128 08/14/17 09:00 66 18 100 Room Air 08/14/17 08:58 76 08/14/17 08:55 80 18 176/126 100 Nasal Cannula 2.0 08/14/17 08:51 172/118 08/14/17 08:50 137 12 149/117 96 Nasal Cannula 2.0 08/14/17 08:45 119 16 100 Nasal Cannula 2.0 08/14/17 08:40 110 12 100 Nasal Cannula 2.0 08/14/17 08:40 140 16 167/135 100 2.0 08/14/17 08:17 150 18 155/127 95 Nasal Cannula 2.0 08/14/17 07:49 97 Room Air 08/14/17 07:47 136 08/14/17 07:44 36.6 135 16 140/102 95 Room Air 08/14/17 07:44 97 Room Air Pre-Sedation Airway Assessment Oral Cavity: WNL Short Thick Neck: No Hx of Sleep Apnea: No Smoking Status: Never Smoker Mallampati Classification: Class II Procedure Planning Contraindications-for Mod Sed: None Yes Notes The planned sedation has been discussed with the patient and consent obtained. I have identified the patient, determined the appropriateness of sedation and have assessed the patient immediately prior to the procedure. All medicine(s) and interventions are by my order.
--- NOTE | 2017-08-14 13:14 | EMERGENCY ROOM VISIT NOTE ---
Post-Moderate Sedation Plan General Date of Moderate Sedation Aug 14, 2017. Vital Signs: Vital Signs Past 12 Hours Date Time Temp Pulse Resp B/P (MAP) Pulse Ox O2 Delivery O2 Flow Rate FiO2 08/14/17 09:49 81 18 133/95 97 08/14/17 09:14 68 20 159/106 98 Room Air 08/14/17 09:07 75 18 150/101 98 Room Air 08/14/17 09:01 159/128 08/14/17 09:00 66 18 100 Room Air 08/14/17 08:58 76 08/14/17 08:55 80 18 176/126 100 Nasal Cannula 2.0 08/14/17 08:51 172/118 08/14/17 08:50 137 12 149/117 96 Nasal Cannula 2.0 08/14/17 08:45 119 16 100 Nasal Cannula 2.0 08/14/17 08:40 110 12 100 Nasal Cannula 2.0 08/14/17 08:40 140 16 167/135 100 2.0 08/14/17 08:17 150 18 155/127 95 Nasal Cannula 2.0 08/14/17 07:49 97 Room Air 08/14/17 07:47 136 08/14/17 07:44 36.6 135 16 140/102 95 Room Air 08/14/17 07:44 97 Room Air Review - Discharge Plan Post Moderate Sedation Plan: On clinical assessment, the patient appears to have tolerated the conscious sedation without complications. Patient is recovering as anticipated. Patient will continue to be monitored by nursing and may be discharged when conscious sedation discharge criteria are met.
== END 2017-08-14 09:51 | disposition home or self-care (01) ==
LOC: C.EDB 07:40 → C.EDA 09:51
DX: I48.0 Paroxysmal atrial fibrillation (principal); I10 Essential (primary) hypertension; E78.5 Hyperlipidemia, unspecified; Z82.49 Family history of ischemic heart disease and other diseases of the circulatory system

== ENCOUNTER 2018-02-13 06:32 | Emergency (ER) | payer BC ==
[~2018-02-13] VITALS: Ht 180.3 cm; Wt 85.3 kg
[2018-02-13 06:38] VITALS: TEMP 36.6; Ht 180.3 cm; Wt 85.3 kg
[2018-02-13] MEDS ORDERED: SODIUM CHLORIDE 0.9% 1000ML 1,000 ML IV STA (06:51)
[2018-02-13] MEDS ORDERED: DILTIAZEM BOLUS / DRIP IV STA (06:51)
[2018-02-13] MEDS ORDERED: DILTIAZEM HCL INJ 125 MG in DEXTROSE 5% 100ML IV PRN (07:00)
[2018-02-13] MEDS ORDERED: DILTIAZEM BOLUS FROM BAG IV ONE (07:00)
[2018-02-13] MEDS ORDERED: DILTIAZEM HCL 5 MG/ML 5 ML VIAL ONE (07:07)
[2018-02-13 07:08] LABS: BASO % 1.1 %; BASO ABS # 0.05 K/uL (0-0.2); EOS ABS # 0.14 K/uL (0-0.5); HEMATOCRIT 44.3 % (42-52); HEMOGLOBIN 16.4 g/dL (14.0-18.0); LYMPH % 31.2 %; LYMPH ABS # 1.46 K/uL (1.2-3.4); MEAN CELL VOLUME 89.5 fL (80-100); MEAN CORPUSCULAR HEMOGLOBIN 33.1 pg (25-34); MEAN PLATELET VOLUME 10.2 fL (7.4-10.4); MONO % 11.8 %; MONO ABS # 0.55 K/uL (0.11-0.59); NEUT % 52.9 %; NEUT ABS # 2.48 K/uL (1.4-6.5); PLATELET COUNT 168 K/uL (130-400); WHITE BLOOD COUNT 4.68 K/uL (4.8-10.8)
--- NOTE | 2018-02-13 07:19 | DIAGNOSTIC IMAGING REPORT ---
SINGLE VIEW CHEST CLINICAL HISTORY: Atypical chest pain. FINDINGS: An AP, portable, upright chest radiograph is compared to study dated 08/14/2017. The examination is degraded by portable technique and patient rotation. The cardiomediastinal silhouette is unremarkable. The lungs and pleural spaces are clear. No pneumothorax is seen. The bony thorax is grossly intact. IMPRESSION: No active disease in the chest. Electronically signed by: Ricardo Bishop M.D. 02/13/2018 7:18 AM Dictated Date/Time: 02/13/2018 7:17 AM
[2018-02-13 07:26] LABS: BLOOD UREA NITROGEN 21 mg/dl (7-18); CALCIUM 8.9 mg/dl (8.5-10.1); CARBON DIOXIDE 22 mmol/L (21-32); CREATININE 0.94 mg/dl (0.60-1.40); GLUCOSE 105 mg/dl (70-99); SODIUM 138 mmol/L (136-145)
[2018-02-13 07:30] LABS: CKMB 4.3 ng/ml (0.5-3.6)
[2018-02-13 08:09] LABS: PTT PATIENT 29.5 SECONDS (21.0-31.0)
[2018-02-13] MEDS ORDERED: CRG3125 PO (08:53)
--- NOTE | 2018-02-13 10:28 | Cardiology Consultation ---
Cardiology Consultation Date of Service Feb 13, 2018. Cardiology Consultation Indication: Consultation for atrial fibrillation with RVR History: This is a 57-year-old male patient with a history of paroxysmal atrial fibrillation. He underwent a pulmonary vein isolation in March 2017. He is very symptomatic with his atrial arrhythmias. According to our records in September, he saw Dr. Bryan who indicated that he was having some heart palpitations and nonsustained arrhythmias following his pulmonary vein isolation. He did have one visit to the emergency department where he was in atrial fibrillation with RVR and received a cardioversion after which he returned home. At his last visit, Dr. Bryan indicated that he if he has a recurrence of atrial fibrillation or continues to be symptomatic then he will have to go on antiarrhythmic medications. He suggested sotalol which the patient has been on before. He also offered him a repeat ablation for his atrial fibrillation. The patient states that this morning he felt that he was in atrial fibrillation. He did not eat or drink anything except for small sip of water with his medications this morning. He then presented to the emergency department where he was found to be in atrial fibrillation with RVR and was started on diltiazem by the emergency department physician. He remains in persistent atrial fibrillation with a controlled heart rate. He denies chest pain or shortness of breath. He has had no dizziness or lightheadedness. He has been on Eliquis. Allergies: Statin medications Reported Home Medications Medications Dose Route/Sig Max Daily Dose Days Date Category Dose Instructions Carvedilol 3.125 Mg Tab 2 Tab PO PM 02/13/18 Reported Coreg (Carvedilol) 3.125 Mg Tab 1 Tab PO DAILY 08/14/17 Reported 1 tab po in the morning Norvasc (Amlodipine Besylate) 5 Mg Tab 5 Mg PO DAILY 04/20/17 Reported Eliquis (Apixaban) 5 Mg Tab 5 Mg PO BID 03/22/16 Rx Past medical history is as outlined in history of chief complaint. In addition the patient has mild essential hypertension. No prior history of diabetes, strokes or kidney disease. Social history: The patient lives with his . He is a non-smoker. Family medical history: Noncontributory General: The patient denies weight change, night sweats, fever, chills. Head: The patient denies headache and prior head trauma. Cardiovascular: The patient denies chest pain or chest discomfort, dyspnea on exertion, palpitations, PND, orthopnea, edema, spontaneous shortness of breath, syncope and near syncope. Pulmonary: The patient denies cough, wheeze, pleurisy, hemoptysis, sputum, and excessive snoring. Gastrointestinal: The patient denies nausea, vomiting, diarrhea, constipation, bloating, hematemesis, hematochezia, and abdominal pain. Skin: The patient denies diaphoresis and rash. Musculoskeletal: The patient denies joint pain, joint swelling, myalgia, back pain, neck pain and prior injuries. Neurological: The patient denies prior stroke and seizures Vital Signs Past 12 Hours Date Time Temp Pulse Resp B/P (MAP) Pulse Ox O2 Delivery O2 Flow Rate FiO2 02/13/18 09:39 92 18 137/86 02/13/18 08:40 93 137/108 02/13/18 08:12 90 18 140/87 02/13/18 07:53 94 135/96 02/13/18 07:41 95 18 126/94 02/13/18 07:26 87 123/89 02/13/18 07:16 104 18 123/94 02/13/18 06:58 97 Room Air 02/13/18 06:51 145 02/13/18 06:38 36.6 75 18 108/78 96 Room Air General Appearance: Alert and Oriented x3. NAD. Head: Normocephalic Atraumatic. Eyes: PERRLA, EOMI, conjunctiva and sclera clear Neck: Supple. No carotid bruits noted. No JVD. No HJD. Respiratory: Breath sounds clear to auscultation bilaterally. No w/r/r. Cardiovascular: Reg rate and rhythm. S1 and S2 noted. No murmurs, rubs, gallops. PMI non displace. Abdomen: Normal bowel sounds, soft nontender. no abdominal bruits. Extremities: No edema, no clubbing or cyanosis. distal pulses 2/4 bilaterally. Neuro: No focal deficits. Psychiatric: Normal affect. Last 24 Hours Test 02/13/18 06:51 02/13/18 06:55 Creatine Kinase MB Ratio White Blood Count 4.68 K/uL Red Blood Count 4.95 M/uL Hemoglobin 16.4 g/dL Hematocrit 44.3 % Mean Corpuscular Volume 89.5 fL Mean Corpuscular Hemoglobin 33.1 pg Mean Corpuscular Hemoglobin Concent 37.0 g/dl Platelet Count 168 K/uL Mean Platelet Volume 10.2 fL Neutrophils (%) (Auto) 52.9 % Lymphocytes (%) (Auto) 31.2 % Monocytes (%) (Auto) 11.8 % Eosinophils (%) (Auto) 3.0 % Basophils (%) (Auto) 1.1 % Neutrophils # (Auto) 2.48 K/uL Lymphocytes # (Auto) 1.46 K/uL Monocytes # (Auto) 0.55 K/uL Eosinophils # (Auto) 0.14 K/uL Basophils # (Auto) 0.05 K/uL RDW Standard Deviation 42.0 fL RDW Coefficient of Variation 13.0 % Immature Granulocyte % (Auto) 0.0 % Immature Granulocyte # (Auto) 0.00 K/uL Prothrombin Time 10.3 SECONDS Prothromb Time International Ratio 1.0 Activated Partial Thromboplast Time 29.5 SECONDS Partial Thromboplastin Ratio 1.1 Sodium Level 138 mmol/L Potassium Level 4.0 mmol/L Chloride Level 109 mmol/L Carbon Dioxide Level 22 mmol/L Anion Gap 7.0 mmol/L Blood Urea Nitrogen 21 mg/dl Creatinine 0.94 mg/dl Est Creatinine Clear Calc Drug Dose 92.3 ml/min Estimated GFR () 103.9 Estimated GFR (Non- 89.6 BUN/Creatinine Ratio 22.6 Random Glucose 105 mg/dl Calcium Level 8.9 mg/dl Creatine Kinase MB 4.3 ng/ml Troponin I < 0.015 ng/ml Impression/recommendations: The patient has had a recurrence of his atrial fibrillation and currently is in persistent atrial fibrillation with a controlled heart rate while on diltiazem. I had a long discussion with the patient regarding possible options. We could cardiovert him in the emergency department and he could return home to have follow-up with Dr. Bryan as an outpatient however, there is a risk that he may have a recurrence of the atrial fibrillation after leaving the emergency department. A second option would be to keep him and start him on antiarrhythmic medications as suggested by Dr. Bryan. He would have to be admitted for several days on a telemetry unit. And then follow-up with Dr. Bryan to consider a repeat ablation. I have explained the risk benefit and intent of both the cardioversion and the start of antiarrhythmic medications. At this time he would like to try the cardioversion and then have follow-up with Dr. bryan without starting antiarrhythmic medications.
[2018-02-13] MEDS ORDERED: PROPOFOL IV EMULSION 10 MG/ML 20 ML VIAL IV ONE (11:05)
[2018-02-13 11:54] VITALS: BP 112/74; PULSE 61; O2SAT 98
--- NOTE | 2018-02-13 11:54 | CARDIOVERSION ---
DATE OF OPERATION: 02/13/2018 PROCEDURE: Cardioversion. HISTORY: This is a 57-year-old male patient with a history of paroxysmal atrial fibrillation and a previous pulmonary vein isolation. He presented with persistent atrial fibrillation with RVR. He was started on diltiazem drip which controlled his heart rate. PROCEDURE SUMMARY: The patient received sedation by the Emergency Department physician. He then received synchronized cardioversion with 200 joules of energy which converted him to normal sinus rhythm. He tolerated the procedure well and following conversion he remained stable. He is well known to the [facility] EP group and will post discharge make arrangements for followup with them as an outpatient. I attest to the content of the Intraoperative Record and any orders documented therein. Any exception s are noted below.
--- NOTE | 2018-02-13 12:24 | Medical Consult ---
Consultation Date of Consultation: Feb 13, 2018. Attending Physician: Reason for Consultation: med consult History of Present Illness Patient is 57 y/o M with PMH HTN, HLD, DELICIA, PAF on Eliquis S/P multiple cardioversions and S/P pulmonary vein isolation cryoablation in 03/2017 presented to ER with complaint of palpitations this morning. Patient reports woke up around 430 this morning to get a drink of water and noticed palpitations and noticed his heart rate was high. Patient states has fleeting dizziness since onset of palpitations denies syncope. Denies CP, SOB. Patient drinks 1 cup of coffee daily, past couple of weeks has been drinking 1-2 glasses of wine a night. Reports eating and drinking normally. Reports has been under stress recently. Denies any recent illnesses. Denies fever/chills, diaphoresis, N/V/D/C, GARCIA, vision changes, neck pain, orthopnea, cough, sore throat, choking, otalgia, rhinorrhea, abdominal pain, paresthesias, weakness, extremity weakness, extremity edema, rashes, urinary symptoms, weight loss. Patient follows with Dr. Webster cardiology. Seen Dr. bryan 09/2017 after another recurrence of A. fib RVR on 08/14/2017 in which he was cardioverted in the ER and discharged home. Patient reports discussion at that time was to restart sotalol or consider another ablation. Patient reported wanted to consider another ablation however has not set up an appointment yet. 03/2017: TTE: EF: 55-59%. No wall motion abnormalities. No thrombus. Stress test 01/2016: No inducible ischemia. Today in ER patient found to be in A. fib RVR rate 145. Was given Cardizem 25 mg IV and placed on Cardizem drip and is currently at 10 mg/hour and rate controlled in the 90s. Patient denies any further dizziness, denies chest pain or shortness of breath states still feels slight palpitations but much improved from when he arrived. Past Medical/Surgical History Medical Problems: (1) Encounter for cardioversion procedure Status: Resolved (2) HTN (hypertension) Status: Chronic (3) Hyperlipidemia Status: Chronic (4) Paroxysmal atrial fibrillation Status: Chronic (5) Substernal chest pain Status: Resolved Surgical Problems: (1) H/O colonoscopy Status: Resolved (2) H/O eye surgery Status: Resolved (3) History of cardioversion Status: Resolved (4) History of dental surgery Status: Resolved (5) Hx of prior ablation treatment Permanent Comment: 03/2017: Pulmonary pain isolation cryoablation Status: Resolved (6) S/P surgical manipulation of ankle joint Status: Resolved Family History FH: arrhythmia FATHER FH: heart failure MOTHER (right sided HF) Social History Smoking Status: Former Smoker Smokeless Tobacco Use: No Drug Use: none Marital Status: Housing Status: lives with significant other Occupation Status: employed Allergies Coded Allergies: Statins (Verified Allergy, Severe, MUSCLE CRAMPS, WEAKNESS, 02/13/18) Current Inpatient Medications Current Inpatient Medications Medications (Trade) Dose Ordered Sig/Juventino Route Start Time Stop Time Status Last Admin Dose Admin Diltiazem HCl 125 mg/Dextrose 125 ml @ 0 mls/hr Q0M PRN IV 02/13/18 07:00 03/15/18 06:59 02/13/18 07:12 5 MLS/HR Review of Systems See HPI for pertinent positives & negatives. All other systems reviewed and were otherwise negative Physical Exam Date Time Temp Pulse Resp B/P (MAP) Pulse Ox O2 Delivery O2 Flow Rate FiO2 02/13/18 11:54 61 16 112/74 98 Room Air 02/13/18 11:35 69 11 97 02/13/18 11:34 62 12 99 02/13/18 11:33 62 18 120/86 100 02/13/18 11:32 63 9 129/90 99 02/13/18 11:31 87 5 89 02/13/18 11:30 65 9 137/92 99 02/13/18 10:44 95 02/13/18 10:30 108 136/98 02/13/18 09:39 92 18 137/86 02/13/18 08:40 93 137/108 02/13/18 08:12 90 18 140/87 02/13/18 07:53 94 135/96 02/13/18 07:41 95 18 126/94 02/13/18 07:26 87 123/89 02/13/18 07:16 104 18 123/94 02/13/18 06:58 97 Room Air 02/13/18 06:51 145 02/13/18 06:38 36.6 75 18 108/78 96 Room Air General Appearance: WD/WN, no apparent distress Head: normocephalic, atraumatic Eyes: normal inspection, sclerae normal ENT: hearing grossly normal, pharynx normal, + pertinent finding (Mucous membranes moist) Neck: supple, no JVD, trachea midline Respiratory/Chest: lungs clear, normal breath sounds, no respiratory distress Cardiovascular: no murmur, + irregularly irregular (Rate 90s) Abdomen/GI: normal bowel sounds, non tender, soft Extremities/Musculoskelatal: normal inspection, normal capillary refill, no pedal edema, normal range of motion Neurologic/Psych: alert, normal mood/affect, oriented x 3 Skin: normal color, warm/dry Laboratory Results Last 24 Hours Test 02/13/18 06:51 02/13/18 06:55 02/13/18 11:45 Creatine Kinase MB Ratio White Blood Count 4.68 K/uL Red Blood Count 4.95 M/uL Hemoglobin 16.4 g/dL Hematocrit 44.3 % Mean Corpuscular Volume 89.5 fL Mean Corpuscular Hemoglobin 33.1 pg Mean Corpuscular Hemoglobin Concent 37.0 g/dl Platelet Count 168 K/uL Mean Platelet Volume 10.2 fL Neutrophils (%) (Auto) 52.9 % Lymphocytes (%) (Auto) 31.2 % Monocytes (%) (Auto) 11.8 % Eosinophils (%) (Auto) 3.0 % Basophils (%) (Auto) 1.1 % Neutrophils # (Auto) 2.48 K/uL Lymphocytes # (Auto) 1.46 K/uL Monocytes # (Auto) 0.55 K/uL Eosinophils # (Auto) 0.14 K/uL Basophils # (Auto) 0.05 K/uL RDW Standard Deviation 42.0 fL RDW Coefficient of Variation 13.0 % Immature Granulocyte % (Auto) 0.0 % Immature Granulocyte # (Auto) 0.00 K/uL Prothrombin Time 10.3 SECONDS Prothromb Time International Ratio 1.0 Activated Partial Thromboplast Time 29.5 SECONDS Partial Thromboplastin Ratio 1.1 Sodium Level 138 mmol/L Potassium Level 4.0 mmol/L Chloride Level 109 mmol/L Carbon Dioxide Level 22 mmol/L Anion Gap 7.0 mmol/L Blood Urea Nitrogen 21 mg/dl Creatinine 0.94 mg/dl Est Creatinine Clear Calc Drug Dose 92.3 ml/min Estimated GFR () 103.9 Estimated GFR (Non- 89.6 BUN/Creatinine Ratio 22.6 Random Glucose 105 mg/dl Calcium Level 8.9 mg/dl Creatine Kinase MB 4.3 ng/ml Troponin I < 0.015 ng/ml Assessment & Plan A. FIB RVR Patient with history of PAF S/P several cardioversions and pulmonary vein isolation cryoablation in 03/2017: TTE: EF: 55-59%. No wall motion abnormalities. No thrombus. Stress test 01/2016: No inducible ischemia. Patient with onset of palpitations this morning in A. fib RVR rate 140s. Heart rate in 90s after was given Cardizem 25 mg IV and then Cardizem drip at 10 mg/ hr. initial troponin negative. No electrolyte abnormalities noted. TSH and magnesium levels were added. Negative chest x-ray. no signs of infection. -Cardiology consulted - Dr Calderon to See pt in ER. Pt was cardioverted in ER and is d/c home. -Pt to f/u with cardiology HTN -to continue home meds - amlodipine & carvedilol HLD Patient intolerant to statins. DELICIA Patient has not followed for CPAP. Recommended to pt he has follow up given his hx a-fib. Disposition Cardiology consulted. Pt had cardioversion in ER by cardiology - Dr Calderon and is discharged home. Follows with Dr Samuel for routine care, follows with Dr Webster cardiology Additional Copies To Jaime Samuel III, M.D.
[2018-02-13 12:31] VITALS: BP 133/83; PULSE 66; O2SAT 98
--- NOTE | 2018-02-13 14:11 | EMERGENCY ROOM VISIT NOTE ---
History Report prepared by Davina: Ajay Nascimento Under the Supervision of: Dr. Livan Gustafson D.O. First contact with patient: 06:43 Chief Complaint: TACHYCARDIA Stated Complaint: A FIB History of Present Illness The patient is a 57 year old male who presents to the Emergency Room with complaints of constant heart palpitations beginning two hours ago. He has no pain. He just feels his heart racing. He woke up to get a drink of water during the night and noticed his symptoms. The patient has a history of paroxysmal A-fib for which he is on Eliquis. He has had 6-7 previous episodes of A-fib. He denies recent missed doses of his Eliquis. The patient also complains of intermittent dizziness. Nothing has improved his symptoms. Pt denies headache, fevers, chest pain, shortness of breath, cough, runny nose, nausea, vomiting, diarrhea, pain with urination, and melena. He states that he has been eating and drinking normally. He had cardiac ablations for A-fib last year. Source of History: patient Onset: Two hours ago Quality: other (heart palpitations) Timing: constant Modifying Factors (Relieving): other (none) Associated Symptoms: No fevers, No headache, No chest pain, No SOB, No nausea, No vomiting, No melena, No diarrhea, No urinary symptoms Review of Systems See HPI for pertinent positives & negatives. A total of 10 systems reviewed and were otherwise negative. Past Medical & Surgical Medical Problems: (1) ankle restructure (2) Encounter for cardioversion procedure (3) HTN (hypertension) (4) Hyperlipidemia (5) Paroxysmal atrial fibrillation (6) Substernal chest pain Surgical Problems: (1) H/O colonoscopy (2) H/O eye surgery (3) History of cardioversion (4) History of dental surgery (5) Hx of prior ablation treatment (6) S/P surgical manipulation of ankle joint Family History FH: arrhythmia FATHER FH: heart failure MOTHER (right sided HF) Social History Smoking Status: Former Smoker Alcohol Use: occasionally Drug Use: none Marital Status: Housing Status: lives with significant other Occupation Status: employed Current/Historical Medications Scheduled Amlodipine (Norvasc), 5 MG PO DAILY Apixaban (Eliquis), 5 MG PO BID Carvedilol (Coreg), 1 TAB PO DAILY Carvedilol (Carvedilol), 2 TAB PO PM Allergies Coded Allergies: Statins (Verified Allergy, Severe, MUSCLE CRAMPS, WEAKNESS, 02/13/18) Physical Exam Vital Signs Date Time Temp Pulse Resp B/P (MAP) Pulse Ox O2 Delivery O2 Flow Rate FiO2 02/13/18 12:31 66 16 133/83 98 02/13/18 12:27 133/83 02/13/18 12:25 70 02/13/18 12:20 61 95 02/13/18 12:15 64 94 02/13/18 12:10 62 95 02/13/18 12:05 63 96 02/13/18 12:00 59 10 117/86 98 02/13/18 11:55 62 11 98 02/13/18 11:54 61 16 112/74 98 Room Air 02/13/18 11:50 61 10 99 02/13/18 11:46 112/74 02/13/18 11:45 67 0 98 02/13/18 11:40 65 12 97 02/13/18 11:35 69 11 97 02/13/18 11:34 62 12 99 02/13/18 11:33 62 18 120/86 100 02/13/18 11:32 63 9 129/90 99 02/13/18 11:31 87 5 89 02/13/18 11:30 65 9 137/92 99 02/13/18 10:44 95 02/13/18 10:30 108 136/98 02/13/18 09:39 92 18 137/86 02/13/18 08:40 93 137/108 02/13/18 08:12 90 18 140/87 02/13/18 07:53 94 135/96 02/13/18 07:41 95 18 126/94 02/13/18 07:26 87 123/89 02/13/18 07:16 104 18 123/94 02/13/18 06:58 97 Room Air 02/13/18 06:51 145 02/13/18 06:38 36.6 75 18 108/78 96 Room Air Physical Exam GENERAL: Sitting up in bed, alert, well appearing, well nourished, no distress, non-toxic EYE EXAM: normal conjunctiva. OROPHARYNX: no exudate, no erythema, lips, buccal mucosa, and tongue normal and mucous membranes are moist NECK: supple, no nuchal rigidity, no adenopathy, non-tender LUNGS: Clear to auscultation. Normal chest wall mechanics HEART: Tachycardic rate with an irregularly irregular rhythm. ABDOMEN: abdomen soft, non-tender, normo-active bowel sounds, no masses, no rebound or guarding. SKIN: no rashes and no bruising UPPER EXTREMITIES: upper extremities are grossly normal. LOWER EXTREMITIES: Calves are equal bilaterally. NEURO EXAM: Normal sensorium, cranial nerves II-XII grossly intact, normal speech, no gross weakness of arms, no gross weakness of legs. Medical Decision & Procedures ER Provider Diagnostic Interpretation: Radiology results as stated below per my review and the radiologist's interpretation: SINGLE VIEW CHEST FINDINGS: An AP, portable, upright chest radiograph is compared to study dated 08/14/2017. The examination is degraded by portable technique and patient rotation. The cardiomediastinal silhouette is unremarkable. The lungs and pleural spaces are clear. No pneumothorax is seen. The bony thorax is grossly intact. IMPRESSION: No active disease in the chest. Electronically signed by: Ricardo Bishop M.D. 02/13/2018 7:18 AM Laboratory Results 02/13/18 06:55 Red Blood Count 4.95, Mean Corpuscular Volume 89.5, Mean Corpuscular Hemoglobin 33.1, Mean Corpuscular Hemoglobin Concent 37.0, Mean Platelet Volume 10.2, Neutrophils (%) (Auto) 52.9, Lymphocytes (%) (Auto) 31.2, Monocytes (%) (Auto) 11.8, Eosinophils (%) (Auto) 3.0, Basophils (%) (Auto) 1.1, Neutrophils # (Auto ) 2.48, Lymphocytes # (Auto) 1.46, Monocytes # (Auto) 0.55, Eosinophils # (Auto ) 0.14, Basophils # (Auto) 0.05 02/13/18 06:55 Test 02/13/18 06:51 02/13/18 06:55 02/13/18 11:45 Creatine Kinase MB Ratio (0-3.0) White Blood Count 4.68 K/uL (4.8-10.8) Red Blood Count 4.95 M/uL (4.7-6.1) Hemoglobin 16.4 g/dL (14.0-18.0) Hematocrit 44.3 % (42-52) Mean Corpuscular Volume 89.5 fL (80-100) Mean Corpuscular Hemoglobin 33.1 pg (25-34) Mean Corpuscular Hemoglobin Concent 37.0 g/dl (32-36) Platelet Count 168 K/uL (130-400) Mean Platelet Volume 10.2 fL (7.4-10.4) Neutrophils (%) (Auto) 52.9 % Lymphocytes (%) (Auto) 31.2 % Monocytes (%) (Auto) 11.8 % Eosinophils (%) (Auto) 3.0 % Basophils (%) (Auto) 1.1 % Neutrophils # (Auto) 2.48 K/uL (1.4-6.5) Lymphocytes # (Auto) 1.46 K/uL (1.2-3.4) Monocytes # (Auto) 0.55 K/uL (0.11-0.59) Eosinophils # (Auto) 0.14 K/uL (0-0.5) Basophils # (Auto) 0.05 K/uL (0-0.2) RDW Standard Deviation 42.0 fL (36.4-46.3) RDW Coefficient of Variation 13.0 % (11.5-14.5) Immature Granulocyte % (Auto) 0.0 % Immature Granulocyte # (Auto) 0.00 K/uL (0.00-0.02) Prothrombin Time 10.3 SECONDS (9.0-12.0) Prothromb Time International Ratio 1.0 (0.9-1.1) Activated Partial Thromboplast Time 29.5 SECONDS (21.0-31.0) Partial Thromboplastin Ratio 1.1 Anion Gap 7.0 mmol/L (3-11) Est Creatinine Clear Calc Drug Dose 92.3 ml/min Estimated GFR () 103.9 Estimated GFR (Non- 89.6 BUN/Creatinine Ratio 22.6 (10-20) Calcium Level 8.9 mg/dl (8.5-10.1) Creatine Kinase MB 4.3 ng/ml (0.5-3.6) Magnesium Level 1.9 mg/dl (1.8-2.4) Troponin I < 0.015 ng/ml (0-0.045) Thyroid Stimulating Hormone (TSH) 2.010 uIu/ml (0.300-4.500) Laboratory results per my review. Medications Administered Medications (Trade) Dose Ordered Sig/Juventino Route Start Time Stop Time Status Last Admin Dose Admin Sodium Chloride 1,000 ml @ 999 mls/hr Q1H1M STAT IV 02/13/18 06:51 02/13/18 07:51 DC 02/13/18 06:57 999 MLS/HR Diltiazem HCl 125 mg/Dextrose 125 ml @ 0 mls/hr Q0M PRN IV 02/13/18 07:00 02/13/18 13:13 DC 02/13/18 07:12 5 MLS/HR Diltiazem HCl (Cardizem Inj) 25 mg STK-MED ONCE .ROUTE 02/13/18 07:07 02/13/18 07:08 DC 02/13/18 07:11 10 MG Propofol (Diprivan Iv Emulsion 20ml Vial) 200 mg STK-MED ONCE IV 02/13/18 11:05 02/13/18 11:06 DC 02/13/18 11:50 90 MG Procedure Procedural Sedation Indication A-fib. Total time: 16 minutes. Written consent was obtained after the risks and benefits were explained to the patient, including, but not limited to aspiration, allergic reaction, breathing difficulties, cardiac complications, vomiting, pain, event recall, bleeding, and /or infection. Pre-sedation examination and paperwork completed. The patient was on 100% oxygen via NRB prior to the procedure. Continous end tidal CO2 monitoring, pulse oximetry, and cardiac monitoring were utilized. Suction, airway equipment, medications, respiratory equipment, and appropriate personnel were prepared prior to the initiation of the procedure. A time out was taken. Sedation was achieved utilizing 90 mg of Propofol. After I observed the patient had reached the appropriate level of sedation the main procedure was performed without complication. Sedation was discontinued and the monitoring continued. The patient recovered quickly from the effects of the medication without complication or adverse event. ECG Per My Interpretation Indication: palpitations Rate (beats per minute): 129 Rhythm: atrial fibrillation (RVR) Findings: Q waves (Septal), other (Normal axis.) ED Course ED COURSE: Vital signs were reviewed and showed tachycardia. The patients medical record was reviewed The above diagnostic studies were performed and reviewed. ED treatments and interventions as stated above. 0647: The patient was evaluated in room B10. A complete history and physical examination was performed. 0651: Ordered Sodium Chloride 1000 ml @ 999 mls/hr IV. 0700: Ordered Diltiazem HCl 125 mg/Dextrose 125 mL IV Titration. 0735: Upon reevaluation, the patient is doing well. His heart rate is in the 90' s. I discussed my findings with the patient and he understands and agrees with the treatment plan. Based on the patients age, coexisting illnesses, exam and lab findings the decision to treat as an inpatient was made. The patient remained stable while under my care. The patient will be evaluated for further management. 1015: The patient would like to be cardioverted and sent home. 1028: I updated the patient and obtained consent for sedation. 1118: I conducted the procedural sedation. See the procedure note for details. 1130: The patient was shocked into a sinus rhythm. 1230: Upon reevaluation, the patient is ready to leave. I discussed my findings with the patient and he understands and agrees with the outpatient treatment plan. Based on the patients age, coexisting illnesses, exam and lab findings the decision to treat as an outpatient was made. The patient remained stable while under my care. The patient is ready for discharge. Medical Decision Differential diagnosis includes etiologies such as premature contractions, electrolyte abnormality, cardiac dysrhythmia, thyroid dysfunction, pulmonary embolism, infection, gastrointestinal, as well as others were entertained. Patient is a 57-year-old male who presents the ER for palpitations associated with mild dizziness. Vitals show a heart rate in the 130s-40s. EKG shows A. fib with RVR. CBC along with BMP was unremarkable. Troponins were negative 2. TSH was normal. Magnesium was normal. Patient was placed on a Cardizem drip and bolus. Heart rate trended down to the 80s. Patient was evaluated by internal medicine and cardiology. Decision was made to cardiovert. I sedated the patient well cardiology cardioverted him. He tolerated the procedure well. He was given propofol IV. He has not eaten or drank since last night. Patient rested in the ER comfortably in our post sedation. He was able to eat and drink. He was discharged to follow-up with cardiology as an outpatient. Discussed with Pt concerning signs and symptoms to watch out for. Pt was instructed to follow up with their PCP and discussed with the patient their option to return to the ED at anytime for persistent or worsening symptoms. The appropriate anticipatory guidance and out-patient management, including indications for return to the emergency department, were explained at length to the patient and understood. Medication Reconcilliation Current Medication List: was personally reviewed by me Blood Pressure Screening Patient's blood pressure: Normal blood pressure Blood pressure disposition: Did not require urgent referral Consults Time Called: 0732 Consulting Physician: Dr. Willy Brown Hospitalist Returned Call: [phone] I reviewed the patient's case with Dr. Aguilera. Kevin will evaluate the patient for further management. Impression Primary Impression: Atrial fibrillation with rapid ventricular response Critical Care I have personally spent 35 minutes of critical care time in the direct management of this patient. This includes bedside care, interpretation of diagnostic studies, and testing, discussion with consultants, patient, and family members, and other required patient management activities. This 35 minutes is in excess of all separately billable procedures. Scribe Attestation The scribe's documentation has been prepared under my direction and personally reviewed by me in its entirety. I confirm that the note above accurately reflects all work, treatment, procedures, and medical decision making performed by me. Departure Information Dispostion Home / Self-Care Referrals No Doctor, Assigned (PCP) Forms HOME CARE DOCUMENTATION FORM, IMPORTANT VISIT INFORMATION, WORK / SCHOOL INSTRUCTIONS Patient Instructions ED Afib, My [facility] Additional Instructions Please follow up with your primary care doctor with in the next 24 hours. Any worsening of your symptoms, please return to the ED immediately. This includes any fevers greater than 100.4, worsening pain, chest pain, shortness breath, persistent nausea, vomiting, unable to eat or drink, or any other concerning signs or symptoms from your standpoint. Please follow-up with your EP physician Dr. bryan in regards to additional antiarrhythmic management. Of utmost importance is her follow-up with electrophysiology from [facility].
--- NOTE | 2018-02-13 14:12 | EMERGENCY ROOM VISIT NOTE ---
Post-Moderate Sedation Plan General Date of Moderate Sedation Feb 13, 2018. Vital Signs: Vital Signs Past 12 Hours Date Time Temp Pulse Resp B/P (MAP) Pulse Ox O2 Delivery O2 Flow Rate FiO2 02/13/18 12:31 66 16 133/83 98 02/13/18 12:27 133/83 02/13/18 12:25 70 02/13/18 12:20 61 95 02/13/18 12:15 64 94 02/13/18 12:10 62 95 02/13/18 12:05 63 96 02/13/18 12:00 59 10 117/86 98 02/13/18 11:55 62 11 98 02/13/18 11:54 61 16 112/74 98 Room Air 02/13/18 11:50 61 10 99 02/13/18 11:46 112/74 02/13/18 11:45 67 0 98 02/13/18 11:40 65 12 97 02/13/18 11:35 69 11 97 02/13/18 11:34 62 12 99 02/13/18 11:33 62 18 120/86 100 02/13/18 11:32 63 9 129/90 99 02/13/18 11:31 87 5 89 02/13/18 11:30 65 9 137/92 99 02/13/18 10:44 95 02/13/18 10:30 108 136/98 02/13/18 09:39 92 18 137/86 02/13/18 08:40 93 137/108 02/13/18 08:12 90 18 140/87 02/13/18 07:53 94 135/96 02/13/18 07:41 95 18 126/94 02/13/18 07:26 87 123/89 02/13/18 07:16 104 18 123/94 02/13/18 06:58 97 Room Air 02/13/18 06:51 145 02/13/18 06:38 36.6 75 18 108/78 96 Room Air Review - Discharge Plan Post Moderate Sedation Plan: On clinical assessment, the patient appears to have tolerated the conscious sedation without complications. Patient was able to sit up talking cough without difficulty. Patient is recovering as anticipated. Patient will continue to be monitored by nursing and may be discharged when conscious sedation discharge criteria are met.
--- NOTE | 2018-02-13 14:13 | EMERGENCY ROOM VISIT NOTE ---
Pre-Mod Sedation Assessment General Date of Moderate Sedation: Feb 13, 2018. Vital Signs: Vital Signs Past 12 Hours Date Time Temp Pulse Resp B/P (MAP) Pulse Ox O2 Delivery O2 Flow Rate FiO2 02/13/18 12:31 66 16 133/83 98 02/13/18 12:27 133/83 02/13/18 12:25 70 02/13/18 12:20 61 95 02/13/18 12:15 64 94 02/13/18 12:10 62 95 02/13/18 12:05 63 96 02/13/18 12:00 59 10 117/86 98 02/13/18 11:55 62 11 98 02/13/18 11:54 61 16 112/74 98 Room Air 02/13/18 11:50 61 10 99 02/13/18 11:46 112/74 02/13/18 11:45 67 0 98 02/13/18 11:40 65 12 97 02/13/18 11:35 69 11 97 02/13/18 11:34 62 12 99 02/13/18 11:33 62 18 120/86 100 02/13/18 11:32 63 9 129/90 99 02/13/18 11:31 87 5 89 02/13/18 11:30 65 9 137/92 99 02/13/18 10:44 95 02/13/18 10:30 108 136/98 02/13/18 09:39 92 18 137/86 02/13/18 08:40 93 137/108 02/13/18 08:12 90 18 140/87 02/13/18 07:53 94 135/96 02/13/18 07:41 95 18 126/94 02/13/18 07:26 87 123/89 02/13/18 07:16 104 18 123/94 02/13/18 06:58 97 Room Air 02/13/18 06:51 145 02/13/18 06:38 36.6 75 18 108/78 96 Room Air Pre-Sedation Airway Assessment Oral Cavity: Capped Teeth, WNL Able to Visualize Vocal Cords: No Short Thick Neck: No Smoking Status: Former Smoker Mallampati Classification: Class I (Sft palate,uvula,fauces,pillar) ASA Classification: Class II Procedure Planning Contraindications-for Mod Sed: None Yes Notes The planned sedation has been discussed with the patient and consent obtained. I have identified the patient, determined the appropriateness of sedation and have assessed the patient immediately prior to the procedure. All medicine(s) and interventions are by my order.
== END 2018-02-13 12:33 | disposition home or self-care (01) ==
LOC: C.EDB 06:33
DX: I48.0 Paroxysmal atrial fibrillation (principal); I10 Essential (primary) hypertension; E78.5 Hyperlipidemia, unspecified; Z87.891 Personal history of nicotine dependence; Z79.01 Long term (current) use of anticoagulants; Z79.899 Other long term (current) drug therapy; Z88.8 Allergy status to other drugs, medicaments and biological substances

== ENCOUNTER 2021-07-29 16:50 | Inpatient (IN) ==
[2021-07-29] MEDS ORDERED: SODIUM CHLORIDE 0.9% 1000ML 1,000 ML IV ONE (19:39)
[2021-07-29] MEDS ORDERED: ONDANSETRON INJ 2 MG/ML 2 ML VIAL IV STA (19:39)
[2021-07-29] MEDS ORDERED: KETOROLAC TROMETHAMINE 15 MG/ML VIAL IV STA (19:39)
[2021-07-29 20:02] LABS: Appearance Urine Clear (Clear); Bacteria Urine Automated Negative (Negative); Bilirubin Urine Negative (Negative); Blood Urine 1+ (Negative); Color Urine Yellow; Glucose Urine UA Negative (Negative); Ketones Urine Trace (Negative); Leukocyte Esterase Urine Negative (Negative); Nitrite Urine Negative (Negative); Protein Urine Negative (Negative); Specific Gravity Urine 1.015 (1.000-1.030); Urobilinogen Urine Negative (Negative); pH Urine 7.5 (4.5-7.5)
--- NOTE | 2021-07-29 20:26 | CT Scan Report ---
CT SCAN OF THE ABDOMEN AND PELVIS WITHOUT IV CONTRAST CLINICAL HISTORY: Right flank pain. COMPARISON STUDY: No priors. TECHNIQUE: CT scan of the abdomen and pelvis is performed from the lung bases to the proximal femora. Images are reviewed in the axial, sagittal, and coronal planes. IV contrast was not administered for this examination. A dose lowering technique was utilized adhering to the principles of ALARA. CT DOSE: 402.32 mGy.cm FINDINGS: Lung bases: The heart is normal in size and without pericardial effusion. The lung bases are clear. T here is a tiny hiatal hernia. Liver: The unenhanced liver is normal in size, contour, and attenuation. There is no intrahepatic elizabet iary ductal dilatation. Gallbladder: Unremarkable. Spleen: Normal in size and attenuation. Pancreas: Unremarkable. Adrenal glands: Unremarkable. Kidneys: The unenhanced kidneys are normal in size patchy there is a 6 mm obstructing calculus in the distal right ureter located just above the vesicoureteral junction seen on image #[id number]. This causes m ild to moderate right hydroureteronephrosis. There is an additional 4 mm nonobstructing calculus in t he right upper pole. No left renal calculi are identified and there is no left-sided hydronephrosis. Renal sinus cysts are noted on the left. There is no evidence of contour deforming renal mass lesion. Abdominal vasculature: The abdominal aorta is normal in course and caliber noting mild atheroscleroti c calcification. Bowel: There is no bowel obstruction. The appendix is well-visualized and normal. Peritoneum: There is no intraperitoneal free air or abdominal ascites. Mild mesenteric haziness is no nspecific and may represent a chronic panniculitis. Lymphadenopathy: None. Pelvic viscera: The prostate gland is mildly enlarged. The bladder is normal as visualized. Surgical clips are noted along the course of the spermatic cord. Skeletal structures: No lytic or blastic lesions are seen. There is mild to moderate lumbosacral spon dylosis, greatest at L5-S1 where there is moderate disc space narrowing, endplate sclerosis, and a po sterior disc osteophyte complex. Sclerotic change is noted in the pubic symphysis. IMPRESSION: 1. There is a 6 mm obstructing calculus in the distal right ureter. This causes mild to moderate righ t hydroureteronephrosis. 2. There is additional nonobstructing calculus in the right kidney. 3. No left renal calculi are identified. 4. Additional findings as above. ACT 112: Negative or not required by law. Electronically signed by: Ricardo Bishop M.D. 07/29/2021 8:24 PM
[2021-07-29 20:37] LABS: Basophils # (auto) 0.01 K/uL (0-0.2); Basophils % (auto) 0.1 %; Hematocrit (blood only) 46.7 % (42-52); Hemoglobin 16.3 g/dL (14.0-18.0); Immature Granulocytes # (auto) 0.02 K/uL (0.00-0.02); Immature Granulocytes % (auto) 0.3 %; Lymphocytes % (auto) 7.8 %; Mean Corpuscular Hemoglobin 33.5 pg (25-34); Mean Corpuscular Hgb Conc 34.9 g/dL (32-36); Mean Corpuscular Volume 96.1 fL (80-100); Mean Platelet Volume 10.2 fL (7.4-10.4); Monocytes # (auto) 0.37 K/uL (0.11-0.59); Monocytes % (auto) 4.8 %; Neutrophils # (auto) 6.73 K/uL (1.4-6.5); Platelet Count 179 K/uL (130-400); RDW Coefficient of Variation 13.1 % (11.5-14.5); Red Blood Count 4.86 M/uL (4.7-6.1); White Blood Count 7.73 K/uL (4.8-10.8)
[2021-07-29 20:56] LABS: Albumin Level 4.4 gm/dl (3.4-5.0); Bilirubin Direct 0.2 mg/dl (0-0.2); Calcium 9.5 mg/dl (8.5-10.1); Creatinine Clr Calc Pharmacy 91.9 ml/min; Est GFR (African American) 105.8 ml/min; Est GFR (Non-African American) 91.3 ml/min; Potassium 3.6 mmol/L (3.5-5.1)
[2021-07-29 20:59] LABS: Bilirubin,Total 0.8 mg/dl (0.2-1)
--- NOTE | 2021-07-29 21:18 | History & Physical Report ---
Date of Service July 29, 2021 Assessment & Plan (1) Right ureteral calculus: (2) Hydronephrosis, right: (3) Paroxysmal atrial fibrillation: (4) HTN (hypertension): (5) Hyperlipidemia: (6) DELICIA (obstructive sleep apnea): Plan: HPI, PMH, PE, med rec completed by Nicky Cardoza PA-C. Assessment and plan per Dr. Valdovinos, see addendum History of Present Illness Chief Complaint: Right testicular and right flank pain Primary Care Provider: Jaime Samuel MD Patient is 60-year-old male with PMH paroxysmal atrial fibrillation s/p pulmonary vein isolation cryoablation in 2017 in 2018, HTN, HLD, DELICIA presented to ER with complaint of right testicle and right flank pain today. Patient states approximately 1 month ago had right mid to lower back pain and he thought he may have pulled a muscle and pain resolved in a day. Reports today he started with sudden onset of sharp right testicle pain then developed pain to right flank as well. Reports had nausea and vomiting today. Reports is urinating and denies dysuria, urinary frequency, hematuria. No history of kidney stones in the past. Denies fever/chills, diaphoresis, diarrhea, constipation, GARCIA, dizziness, syncope, vision changes, neck pain, CP, SOB, orthopnea, palpitations, cough, sore throat, choking, otalgia, rhinorrhea, other abdominal pain, paresthesias, weakness, extremity weakness, extremity edema, rashes, scrotal discoloration or edema, penile discharge. In ER CT the pelvis revealed a 6 mm right distal ureteral calculus, mild to moderate right hydronephrosis. Patient being noted for further evaluation and treatment Allergies Allergy/AdvReac Type Severity Reaction Status Date / Time [id number] Reductase Allergy Severe MUSCLE Verified 07/29/21 21:22 Inhibitor CRAMPS, WEAKNESS Home Medications Medication Instructions Recorded Confirmed Type amlodipine 10 mg tablet 10 mg PO DAILY 07/29/21 07/29/21 History aspirin 81 mg tablet,delayed 81 mg PO DAILY 07/29/21 07/29/21 History release losartan 50 mg tablet 50 mg PO DAILY 07/29/21 07/29/21 History Past Med/Surg History Medical History (Updated 07/29/21 @ 21:58 by Nicky Cardoza PA-C) HTN (hypertension) Hyperlipidemia DELICIA (obstructive sleep apnea) Paroxysmal atrial fibrillation Surgical History (Updated 07/29/21 @ 21:18 by Nicky Cardoza PA-C) H/O detached retina repair History of cataract surgery Status post cryoablation Pulmonary vein [place] 2017 [place] 2018[place] [facility] [place] Family History (Updated 07/29/21 @ 21:56 by Nicky Cardoza PA-C) Other Cancer Diabetes Hypertension Stroke Social History (Updated 07/29/21 @ 21:57 by Nicky Cardoza PA-C) Smoking Status: Never smoker Hx Alcohol Use: Yes (3 glasses wine a night) Alcohol type: wine Hx Substance Use: No Feels Safe at Home: Yes Review of Systems Review of Systems: All systems reviewed & are unremarkable except as noted in HPI & below Physical Exam Physical Exam: General: no distress, WDWN Head: normocephalic, atraumatic Eyes: PERRL, EOM's intact, conjunctiva non-injected, anicteric ENT: normal inspection external ears, nose, mucous membranes moist Neck: supple, trachea midline Lungs: clear, no respiratory distress, no wheezing/rhonchi/rales CV: RRR, no murmur, no pretibial edema Abd: normal BS, soft, non-tender, no CVA tenderness at this time Ext: no cyanosis, no calf tenderness Neuro: A&O x 3, no focal deficits noted, normal affect Skin: warm, dry Results & Data Results & Data ([facility]) Vital Signs (Past 12 Hours) Vital Signs Temp Pulse Pulse Resp BP BP Pulse Ox 07/29/21 20:00 79 14 179/105 H 98 07/29/21 17:47 36.7 C 100 H 20 161/108 H 99 Laboratory Results Short CBC 07/29/21 Range/Units 20:19 WBC 7.73 (4.8-10.8) K/uL Hgb 16.3 (14.0-18.0) g/dL Hct 46.7 (42-52) % Plt Count 179 (130-400) K/uL BMP 07/29/21 20:19 Sodium 138 Potassium 3.6 Chloride 107 Carbon Dioxide 24 BUN 10 Creatinine 0.91 Glucose 111 H Calcium 9.5 Liver Function 07/29/21 Range/Units 20:19 Total Bilirubin 0.8 (0.2-1) mg/dl Direct Bilirubin 0.2 (0-0.2) mg/dl AST 29 (15-37) U/L ALT 60 (12-78) U/L Alkaline Phosphatase 108 (45-117) U/L Albumin 4.4 (3.4-5.0) gm/dl Urine 07/29/21 Range/Units 19:51 Urine Color Yellow Urine Appearance Clear (Clear) Urine pH 7.5 (4.5-7.5) Ur Specific [employer] 1.015 (1.000-1.030) Urine Protein Negative (Negative) Urine Glucose (UA) Negative (Negative) Diagnostic Findings Abdomen/Pelvis CT 07/29/21 19:40 CT SCAN OF THE ABDOMEN AND PELVIS WITHOUT IV CONTRAST CLINICAL HISTORY: Right flank pain. COMPARISON STUDY: No priors. TECHNIQUE: CT scan of the abdomen and pelvis is performed from the lung bases to the proximal femora. Images are reviewed in the axial, sagittal, and coronal planes. IV contrast was not administered for this examination. A dose lowering technique was utilized adhering to the principles of ALARA. CT DOSE: 402.32 mGy.cm FINDINGS: Lung bases: The heart is normal in size and without pericardial effusion. The lung bases are clear. There is a tiny hiatal hernia. Liver: The unenhanced liver is normal in size, contour, and attenuation. There is no intrahepatic biliary ductal dilatation. Gallbladder: Unremarkable. Spleen: Normal in size and attenuation. Pancreas: Unremarkable. Adrenal glands: Unremarkable. Kidneys: The unenhanced kidneys are normal in size patchy there is a 6 mm obstructing calculus in the distal right ureter located just above the vesicoureteral junction seen on image #358. This causes mild to moderate right hydroureteronephrosis. There is an additional 4 mm nonobstructing calculus in t he right upper pole. No left renal calculi are identified and there is no left- sided hydronephrosis. Renal sinus cysts are noted on the left. There is no evidence of contour deforming renal mass lesion. Abdominal vasculature: The abdominal aorta is normal in course and caliber noting mild atherosclerotic calcification. Bowel: There is no bowel obstruction. The appendix is well-visualized and normal. Peritoneum: There is no intraperitoneal free air or abdominal ascites. Mild mesenteric haziness is nonspecific and may represent a chronic panniculitis. Lymphadenopathy: None. Pelvic viscera: The prostate gland is mildly enlarged. The bladder is normal as visualized. Surgical clips are noted along the course of the spermatic cord. Skeletal structures: No lytic or blastic lesions are seen. There is mild to moderate lumbosacral spondylosis, greatest at L5-S1 where there is moderate disc space narrowing, endplate sclerosis, and a posterior disc osteophyte complex. Sclerotic change is noted in the pubic symphysis. IMPRESSION: 1. There is a 6 mm obstructing calculus in the distal right ureter. This causes mild to moderate right hydroureteronephrosis. 2. There is additional nonobstructing calculus in the right kidney. 3. No left renal calculi are identified. 4. Additional findings as above. ACT 112: Negative or not required by law. Electronically signed by: Ricardo Bishop M.D. 07/29/2021 8:24 PM Supervising Physician Co-Signing Physician Notes IM ATTENDING : Patient seen and examined. History obtained from patient and records. Preceding documentation by Ms. Nicky Cardoza PA-C reviewed. FINAL ASSESSMENT AND PLAN as follows : Hypertensive urgency secondary to renal colic, obstructive uropathy PAF status post ablation Hyperlipidemia, statin intolerance Hyperglycemia rule out DM At risk drinking Past tobacco abuse Medical telemetry given BP elevation Analgesia Titrate home BP meds Flomax trial Strain urine Urology consult Re: Renal colic, obstructive uropathy N.p.o. after midnight in anticipation of procedure if stone does not pass overnight Check hemoglobin A1c Watch out for alcohol withdrawal DVT prophylaxis. [facility] Full code Text document was generated using [employer] voice recognition software. It may contain grammatical or spelling errors. Kindly contact undersigned for clarification of any documentation item in question.
[2021-07-29] MEDS ORDERED: TAMSULOSIN HCL 0.4 MG CAP PO STA (21:21)
[2021-07-29 21:26] LABS: Magnesium 1.6 mg/dl (1.8-2.4)
[2021-07-29] MEDS ORDERED: THIAMINE HCL 100 MG in SYRINGE 9 ML IV STA (22:12)
[2021-07-29] MEDS ORDERED: LOSARTAN POTASSIUM 50 MG TAB PO STA (22:16)
--- NOTE | 2021-07-29 23:28 | Emergency Department Note ---
History of Present Illness General Chief Complaint: Back Injury/Pain Stated Complaint: SEVERE PAIN IN R LOWER BACK NAUSEA Time Seen by Provider: 07/29/21 19:39 History of Present Illness Provider Complaint: flank pain Onset (ago): 1 day(s) Pain Consistency: intermittent Location: R flank Radiation: other (R testicle) Migration to: no migration Severity: moderate Maximum Pain Intensity: 4 Current Pain Intensity: 4 Quality: + stabbing and + sharp Relieved By: + nothing Exacerbated By: + nothing Context: no foreign travel, no possible food poisoning, no sick contacts, no recent antibiotic use, no recent surgery/procedure or no recent injury Associated Symptoms: + nausea, + vomiting and + back pain; no diarrhea, no fever, no chills, no constipation, no dysuria, no hematemesis, no hematochezia, no melena, no hematuria, no anorexia, no syncope, no headache, no neck pain, no chest pain, no weakness, no breathing difficulty and no numbness Home Medications Medication Instructions Recorded Confirmed Type amlodipine 10 mg tablet 10 mg PO DAILY 07/29/21 07/29/21 History aspirin 81 mg tablet,delayed 81 mg PO DAILY 07/29/21 07/29/21 History release losartan 50 mg tablet 50 mg PO DAILY 07/29/21 07/29/21 History Allergies Allergy/AdvReac Type Severity Reaction Status Date / Time Wrnabhc-Yrt-Wuk Reductase Allergy Severe MUSCLE Verified 07/29/21 21:22 Inhibitor CRAMPS, WEAKNESS Past Med/Surg History Medical History HTN (hypertension) Hyperlipidemia DELICIA (obstructive sleep apnea) Paroxysmal atrial fibrillation Surgical History H/O detached retina repair History of cataract surgery Status post cryoablation Pulmonary vein [place] 2017 [place] [facility] [place] Family History Other Cancer Diabetes Hypertension Stroke Social History Smoking Status: Never smoker Hx Alcohol Use: Yes (3 glasses wine a night) Alcohol type: wine Hx Substance Use: No Feels Safe at Home: Yes Review of Systems A total of 10 systems reviewed and were otherwise negative Physical Exam Vital Signs: Vital Signs - 24 hr 07/29/21 17:47 07/29/21 20:00 07/29/21 21:49 Temperature 36.7 C Temperature Source Temporal Artery Sc an Pulse Rate 100 H Pulse Rate [Apical ] 79 90 Pulse Rate from Sp O2 Sensor Respiratory Rate 20 14 Respiratory Effort / Characteristics Non-Labored Sponta neous Respiratory Depth Normal Respiratory Patter n Regular Blood Pressure 161/108 H Blood Pressure [Le ft Calf] 179/105 H 174/108 H Blood Pressure Ivonne n 125 Blood Pressure Ivonne n [Left Calf] 129 130 Blood Pressure Pos ition [Left Calf] Lying Pulse Oximetry 99 98 99 Oxygen Delivery Me thod Room Air Room Air Room Air Sepsis Recent Feve r Within 48 Hours No Sepsis New/Unexpla ined Change in Men caleb Status No Sepsis Action Take n by Nursing No Action Required 07/29/21 22:00 07/29/21 23:00 Temperature Temperature Source Pulse Rate 86 94 H Pulse Rate [Apical ] Pulse Rate from Sp O2 Sensor 88 94 H Respiratory Rate 22 13 Respiratory Effort / Characteristics Respiratory Depth Respiratory Patter n Blood Pressure 169/112 H 139/99 Blood Pressure [Le ft Calf] Blood Pressure Ivonne n 131 112 Blood Pressure Ivonne n [Left Calf] Blood Pressure Pos ition [Left Calf] Pulse Oximetry 99 97 Oxygen Delivery Me thod Sepsis Recent Feve r Within 48 Hours Sepsis New/Unexpla ined Change in Men caleb Status Sepsis Action Take n by Nursing Physical Exam: Physical Exam GENERAL: He is oriented to person, place, and time. He appears well-developed and well-nourished. He does not appear distressed. HENT: Exam performed. - Head: Normocephalic and atraumatic. - Right Ear: External ear normal. No mastoid tenderness. - Left Ear: External ear normal. No mastoid tenderness. - Mouth/Throat: The oropharynx is clear and moist. No trismus in the jaw. No dental abscesses or uvula swelling. No oropharyngeal exudate or tonsillar abscesses. EYES: Conjunctivae and EOM are normal. Pupils are equal, round, and reactive to light. Right eye exhibits no discharge. Left eye exhibits no discharge. No scleral icterus. NECK: Normal range of motion. Neck supple. No JVD present. No spinous process tenderness present. No carotid bruit present. No rigidity. No tracheal deviation and normal range of motion present. No Brudzinski's sign and no Kernig's sign noted. CV: Normal rate, regular rhythm, normal heart sounds and intact distal pulses. There is no peripheral edema. Palpable radial pulses bue. PULM/CHEST: Effort normal and breath sounds normal. No respiratory distress. No stridor. He has no wheezes. He has no rales. - Chest Wall: He exhibits no tenderness. ABD: The abdomen is soft. Bowel sounds are normal. He has no distension. No mass is present. There is no tenderness. There is no rebound, no guarding, no Malcolm's sign and no tenderness at McBurney's point. Rovsig negative. Right- sided CVA tenderness. MUSC/SKEL: Normal range of motion. There is no peripheral edema, tenderness or deformity. LYMPH: No cervical adenopathy. NEURO: He is alert and oriented to person, place, and time. He has normal strength. No cranial nerve deficit or sensory deficit. Coordination and gait normal. GCS eye subscore is 4. GCS verbal subscore is 5. GCS motor subscore is 6. Cerebellar tests wnl. SKIN: Skin is warm and dry. He is not diaphoretic. PSYCH: He has a normal mood and affect. Behavior is normal. Judgment and thought content normal. Course Course 193: The patient was evaluated in room A9. A complete history and physical exam was performed Cardiac monitoring: An order was placed for continuous cardiac monitoring. The monitor shows a rate of 90 with sinus rhythm 2114: Vital signs stable. Labs within normal limits. CT shows a 6 mm obstructing stone with hydroureteronephrosis. Patient states his pain was very severe earlier today. [facility] for pain control and evaluation by urology. Administered Medications Discontinued Medications Sodium Chloride (Nss 1000ml) 1,000 mls @ 999 mls/hr IV .Q1H1M ONE Stop: 07/29/21 20:39 Last Infusion: 07/29/21 21:53 Dose: 0 mls/hr Documented by: [id number] Admin: 07/29/21 20:24 Dose: 999 mls/hr Documented by: [id number] Thiamine HCl 100 mg/ Syringe 10 mls @ 2 mls/min IV NOW STA Stop: 07/29/21 22:16 Last Admin: 09/24/21 23:09 Dose: 2 mls/min Documented by: [id number] Ketorolac Tromethamine (Ketorolac Tromethamine 15 Mg/Ml Vial) 15 mg IV NOW STA Stop: 07/29/21 19:40 Last Admin: 07/29/21 20:25 Dose: 15 mg Documented by: [id number] Losartan Potassium (Losartan Potassium 50 Mg Tab) 50 mg PO NOW STA Stop: 07/29/21 22:17 Last Admin: 07/29/21 23:09 Dose: 50 mg Documented by: [id number] Ondansetron HCl (Ondansetron Inj 2 Mg/Ml 2 Ml Vial) 4 mg IV NOW STA Stop: 07/29/21 19:40 Last Admin: 07/29/21 20:25 Dose: 4 mg Documented by: [id number] Tamsulosin HCl (Tamsulosin Hcl 0.4 Mg Cap) 0.4 mg PO NOW STA Stop: 07/29/21 21:22 Last Admin: 07/29/21 21:48 Dose: 0.4 mg Documented by: [id number] Medical Decision Making Laboratory Data Result diagrams: 07/29/21 20:19 07/29/21 20:19 Lab Results 07/29/21 07/29/21 07/29/21 Range/Units 19:51 20:19 20:19 WBC 7.73 (4.8-10.8) K/uL RBC 4.86 (4.7-6.1) M/uL Hgb 16.3 (14.0-18.0) g/dL Hct 46.7 (42-52) % MCV 96.1 (80-100) fL MCH 33.5 (25-34) pg MCHC 34.9 (32-36) g/dL RDW Std Deviation 46.0 (36.4-46.3) fL RDW Coeff of Indra 13.1 (11.5-14.5) % Plt Count 179 (130-400) K/uL MPV 10.2 (7.4-10.4) fL Immature Gran % (Auto) 0.3 % Neut % (Auto) 87.0 % Lymph % (Auto) 7.8 % Coke % (Auto) 4.8 % Eos % (Auto) 0.0 % Baso % (Auto) 0.1 % Neut # (Auto) 6.73 H (1.4-6.5) K/uL Lymph # (Auto) 0.60 L (1.2-3.4) K/uL Coke # (Auto) 0.37 (0.11-0.59) K/uL Eos # (Auto) 0.00 (0-0.5) K/uL Baso # (Auto) 0.01 (0-0.2) K/uL Immature Gran # (Auto) 0.02 (0.00-0.02) K/uL Sodium 138 (136-145) mmol/L Potassium 3.6 (3.5-5.1) mmol/L Chloride 107 (98-107) mmol/L Carbon Dioxide 24 (21-32) mmol/L Anion Gap 7.0 (3-11) BUN 10 (7-18) mg/dl Creatinine 0.91 (0.6-1.4) mg/dl Est Cr Clr Drug Dosing 91.9 ml/min Est GFR ( Amer) 105.8 ml/min Est GFR (Non-Af Amer) 91.3 ml/min BUN/Creatinine Ratio 11.0 (10-20) Glucose 111 H (70-99) mg/dl Calcium 9.5 (8.5-10.1) mg/dl Magnesium 1.6 L (1.8-2.4) mg/dl Total Bilirubin 0.8 (0.2-1) mg/dl Direct Bilirubin 0.2 (0-0.2) mg/dl AST 29 (15-37) U/L ALT 60 (12-78) U/L Alkaline Phosphatase 108 (45-117) U/L Total Protein 8.0 (6.4-8.2) gm/dl Albumin 4.4 (3.4-5.0) gm/dl Lipase 95 (73-393) U/L Urine Color Yellow Urine Appearance Clear (Clear) Urine pH 7.5 (4.5-7.5) Ur Specific [place] 1.015 (1.000-1.030) Urine Protein Negative (Negative) Urine Glucose (UA) Negative (Negative) Urine Ketones Trace H (Negative) Urine Blood 1+ H (Negative) Urine Nitrite Negative (Negative) Urine Bilirubin Negative (Negative) Urine Urobilinogen Negative (Negative) Ur Leukocyte Esterase Negative (Negative) Urine WBC (Auto) 1-5 (0-5) /hpf Urine RBC (Auto) 5-10 H (0-4) /hpf U Hyaline Cast (Auto) 1-5 (0-5) /lpf U Epithel Cells (Auto) 10-20 H (0-5) /lpf Urine Bacteria (Auto) Negative (Negative) COVID-19 Eval Order SARS-CoV-2 (PCR) (Negative) 07/29/21 07/29/21 Range/Units 21:19 21:19 WBC (4.8-10.8) K/uL RBC (4.7-6.1) M/uL Hgb (14.0-18.0) g/dL Hct (42-52) % MCV (80-100) fL MCH (25-34) pg MCHC (32-36) g/dL RDW Std Deviation (36.4-46.3) fL RDW Coeff of Indra (11.5-14.5) % Plt Count (130-400) K/uL MPV (7.4-10.4) fL Immature Gran % (Auto) % Neut % (Auto) % Lymph % (Auto) % Coke % (Auto) % Eos % (Auto) % Baso % (Auto) % Neut # (Auto) (1.4-6.5) K/uL Lymph # (Auto) (1.2-3.4) K/uL Coke # (Auto) (0.11-0.59) K/uL Eos # (Auto) (0-0.5) K/uL Baso # (Auto) (0-0.2) K/uL Immature Gran # (Auto) (0.00-0.02) K/uL Sodium (136-145) mmol/L Potassium (3.5-5.1) mmol/L Chloride (98-107) mmol/L Carbon Dioxide (21-32) mmol/L Anion Gap (3-11) BUN (7-18) mg/dl Creatinine (0.6-1.4) mg/dl Est Cr Clr Drug Dosing ml/min Est GFR ( Amer) ml/min Est GFR (Non-Af Amer) ml/min BUN/Creatinine Ratio (10-20) Glucose (70-99) mg/dl Calcium (8.5-10.1) mg/dl Magnesium (1.8-2.4) mg/dl Total Bilirubin (0.2-1) mg/dl Direct Bilirubin (0-0.2) mg/dl AST (15-37) U/L ALT (12-78) U/L Alkaline Phosphatase (45-117) U/L Total Protein (6.4-8.2) gm/dl Albumin (3.4-5.0) gm/dl Lipase (73-393) U/L Urine Color Urine Appearance (Clear) Urine pH (4.5-7.5) Ur Specific [place] (1.000-1.030) Urine Protein (Negative) Urine Glucose (UA) (Negative) Urine Ketones (Negative) Urine Blood (Negative) Urine Nitrite (Negative) Urine Bilirubin (Negative) Urine Urobilinogen (Negative) Ur Leukocyte Esterase (Negative) Urine WBC (Auto) (0-5) /hpf Urine RBC (Auto) (0-4) /hpf U Hyaline Cast (Auto) (0-5) /lpf U Epithel Cells (Auto) (0-5) /lpf Urine Bacteria (Auto) (Negative) COVID-19 Eval Order Covid19 at [facility] SARS-CoV-2 (PCR) NEGATIVE (Negative) Imaging Data Radiologist's Impression: Abdomen/Pelvis CT 07/29/21 19:40 CT SCAN OF THE ABDOMEN AND PELVIS WITHOUT IV CONTRAST CLINICAL HISTORY: Right flank pain. COMPARISON STUDY: No priors. TECHNIQUE: CT scan of the abdomen and pelvis is performed from the lung bases to the proximal femora. Images are reviewed in the axial, sagittal, and coronal planes. IV contrast was not administered for this examination. A dose lowering technique was utilized adhering to the principles of ALARA. CT DOSE: 402.32 mGy.cm FINDINGS: Lung bases: The heart is normal in size and without pericardial effusion. The lung bases are clear. There is a tiny hiatal hernia. Liver: The unenhanced liver is normal in size, contour, and attenuation. There is no intrahepatic biliary ductal dilatation. Gallbladder: Unremarkable. Spleen: Normal in size and attenuation. Pancreas: Unremarkable. Adrenal glands: Unremarkable. Kidneys: The unenhanced kidneys are normal in size patchy there is a 6 mm obstructing calculus in the distal right ureter located just above the vesicoureteral junction seen on image #358. This causes mild to moderate right hydroureteronephrosis. There is an additional 4 mm nonobstructing calculus in the right upper pole. No left renal calculi are identified and there is no left- sided hydronephrosis. Renal sinus cysts are noted on the left. There is no evidence of contour deforming renal mass lesion. Abdominal vasculature: The abdominal aorta is normal in course and caliber noting mild atherosclerotic calcification. Bowel: There is no bowel obstruction. The appendix is well-visualized and normal. Peritoneum: There is no intraperitoneal free air or abdominal ascites. Mild mesenteric haziness is nonspecific and may represent a chronic panniculitis. Lymphadenopathy: None. Pelvic viscera: The prostate gland is mildly enlarged. The bladder is normal as visualized. Surgical clips are noted along the course of the spermatic cord. Skeletal structures: No lytic or blastic lesions are seen. There is mild to moderate lumbosacral spondylosis, greatest at L5-S1 where there is moderate disc space narrowing, endplate sclerosis, and a posterior disc osteophyte complex. Sclerotic change is noted in the pubic symphysis. IMPRESSION: 1. There is a 6 mm obstructing calculus in the distal right ureter. This causes mild to moderate right hydroureteronephrosis. 2. There is additional nonobstructing calculus in the right kidney. 3. No left renal calculi are identified. 4. Additional findings as above. ACT 112: Negative or not required by law. Electronically signed by: Ricardo Bishop M.D. 07/29/2021 8:24 PM MDM Narrative Vital signs stable. Labs within normal limits. CT shows a 6 mm obstructing stone with hydroureteronephrosis. Patient states his pain was very severe earlier today. Will admit to the [facility] hospitalist team Dr. Telles for pain control and evaluation by urology. Impression & Plan Hydronephrosis with renal and ureteral calculus obstruction Discharge Plan Visit Data Chief Complaint: Back Injury/Pain Stated Complaint: SEVERE PAIN IN R LOWER BACK NAUSEA Discharge Problem: Hydronephrosis with renal and ureteral calculus obstruction Patient Disposition: Admitted As Inpatient Forms Stand Alone Forms: [facility] [employer] Prescriptions Prescriptions: No Action losartan 50 mg tablet 50 mg PO DAILY RF: 0 aspirin 81 mg tablet,delayed release (DR/EC) 81 mg PO DAILY RF: 0 amlodipine 10 mg tablet 10 mg PO DAILY RF: 0 Referrals Referrals: Jaime Samuel MD [Primary Care Provider] -
[2021-07-30] MEDS ORDERED: LORazepam 0.5 MG/1 ML VIAL IV PRN (01:05)
[2021-07-30] MEDS ORDERED: oxyCODONE HCL IR 5 MG TAB (IMMEDIATE RELEASE) PO PRN (01:05)
[2021-07-30] MEDS ORDERED: ACETAMINOPHEN 325 MG TAB PO PRN (01:05)
[2021-07-30] MEDS ORDERED: MoRPHine SULFATE 4 MG/ML 1 ML CARP\\VIAL IV PRN ×2 (01:05→04:59)
[2021-07-30] MEDS ORDERED: PROMETHAZINE HCL 12.5 MG in SODIUM CHLORIDE 0.9% 50 ML IV PRN (01:05)
[2021-07-30] MEDS ORDERED: MoRPHine SULFATE 4 MG/ML 1 ML CARP\\VIAL ONE (01:30)
[2021-07-30] MEDS ORDERED: MAGNESIUM SULFATE / D5W 1 GM/100 ML BAG IV ONE (01:45)
[2021-07-30] MEDS: POTASSIUM CHLORIDE 40 MEQ in SODIUM CHLORIDE 0.9% 1000ML 1,000 ML IV SCH ×2 (02:02→20:44)
[2021-07-30] MEDS ORDERED: MoRPHine SULFATE 4 MG/ML 1 ML CARP\\VIAL IV STA (04:59)
[2021-07-30] MEDS: ASPIRIN 81 MG ECTAB PO SCH (08:53)
[2021-07-30] MEDS: amLODIPine BESYLATE 5 MG TAB PO SCH (08:53)
[2021-07-30] MEDS: LOSARTAN POTASSIUM 50 MG TAB PO SCH (08:53)
[2021-07-30 10:00] LABS: Estimated Average Glucose 103 mg/dl; Hemoglobin A1C 5.2 % (4.5-5.6)
--- NOTE | 2021-07-30 10:02 | Urology Consultation ---
Date of Consultation July 30, 2021 Assessment & Plan (1) Hydronephrosis with renal and ureteral calculus obstruction: To OR today for right ureteroscopy, laser lithotripsy, and stent. Risks and benefits explained at length. Patient understands he will need to have the stent removed in the near future. History of Present Illness Reason for Consultation: right ureteral stone P Attending Physician: Jayne Carlson, History of Present Illness patient reports right flank pain and testicular pain since . He presented to the ER yesterday with these symptoms as well as nausea. CT with 6mm right distal ureteral stone and right nonobstructing lower pole stone. No prior history of stones. No history of any symptoms or problems. + history of afib. Otherwise patient reports very few health problems. Due to uncontrolled pain patient was admitted last night. Patient has not passed the stone. He is using pain meds and reports severe breakthrough pain. Allergies Allergy/AdvReac Type Severity Reaction Status Date / Time Edqxpka-Ewh-Iej Reductase AdvReac Severe MUSCLE Verified 07/30/21 01:29 Inhibitor CRAMPS, WEAKNESS Home Medications Medication Instructions Recorded Confirmed Type amlodipine 10 mg tablet 10 mg PO DAILY 07/29/21 07/29/21 History aspirin 81 mg tablet,delayed 81 mg PO DAILY 07/29/21 07/29/21 History release losartan 50 mg tablet 50 mg PO DAILY 07/29/21 07/29/21 History Patient History Medical History HTN (hypertension) Hyperlipidemia DELICIA (obstructive sleep apnea) Paroxysmal atrial fibrillation Surgical History H/O detached retina repair History of cataract surgery Status post cryoablation Pulmonary vein isolation ablation in 2017 and 2018; [facility] [place] Family History Other Cancer Diabetes Hypertension Stroke Social History Smoking Status: Former smoker Smoking End Date: Pt. quit smoking 37 years ago; Second Hand Exposure: No; Do You Dip or Chew Tobacco: No; Tobacco Cessation Education Requested by Patient: No Hx Alcohol Use: Yes Alcohol type: wine Hx Substance Use: No Preferred Language: Thai Communication Ability: Effective Textile Stylist Required: No Beliefs That Will Affect Care: None Current Living Situation: Spouse Other Information That Helps Us Care for You: No Feels Safe at Home: Yes Safety Concerns: Feels Safe At This Time Assistive Devices: None Assistive Devices Comment: Pt. has personal contacts with him (Left eye) only Review of Systems Review of Systems: NO CP or SOB. See HPI Physical Exam Physical Exam: NAD RRR Nonlabored breathing soft, mild tenderness AO x 3 normal mood Results & Data ([facility]) Vital Signs (Past 12 Hours) Vital Signs Temp Pulse Pulse Pulse Resp BP BP 07/30/21 07:58 73 07/30/21 07:07 36.7 C 64 18 120/73 07/30/21 02:51 36.9 C 79 18 142/87 H 07/30/21 01:10 93 H 07/30/21 00:53 37.2 C 100 H 20 149/92 H 07/30/21 00:50 37.2 C 100 H 20 149/92 H 07/30/21 00:20 88 130/92 07/29/21 23:00 94 H 13 139/99 Pulse Ox Pulse Ox 07/30/21 07:58 07/30/21 07:07 98 07/30/21 02:51 98 07/30/21 01:10 07/30/21 00:53 97 97 07/30/21 00:50 97 07/30/21 00:20 96 07/29/21 23:00 97 Laboratory Results WBC and Head Filter Press Tender WNL Diagnostic Findings CT with right ureteral stone - distal PG Care Time/CCT Total # of Minutes Spent Total Time Spent with Patient: Total time spent is greater than 50% in coordination of care (as documented) at patient's floor/unit and/or counseling patient: [place] [address] Inpt Consult Level 4 Patient Type New Medical Decision Making Moderate Complexity Diagnoses Hydronephrosis with renal and ureteral calculus obstruction N13.2 Time Spent (min) 25
[2021-07-30] MEDS: ENOXAPARIN INJ 40 MG/0.4 ML SYR SQ SCH (10:04)
[2021-07-30] MEDS ORDERED: LIDOCAINE 2% 2 ML VIAL/AMP(20MG/ML) INFIL ONE (10:07)
[2021-07-30] MEDS ORDERED: fentaNYL citrate 100 MCG/2 ML VIAL ONE (10:07)
[2021-07-30] MEDS ORDERED: ONDANSETRON INJ 2 MG/ML 2 ML VIAL ONE (10:07)
[2021-07-30] MEDS ORDERED: PROPOFOL IV EMULSION 10 MG/ML 20 ML VIAL IV ONE (10:07)
[2021-07-30] MEDS ORDERED: MIDAZOLAM HCL 1 MG/ML 2ML VIAL ONE (10:07)
[2021-07-30] MEDS ORDERED: GLYCOPYRROLATE 0.2 MG/ML VIAL ONE (10:07)
--- NOTE | 2021-07-30 10:17 | Anesthesiology Consultation ---
Date of Service July 30, 2021 Assessment & Plan (1) Encounter for pre-operative examination: Chart Review Chart Review: Acceptable Risk for Surgery and Patient NOT seen in Pre Admission Testing Consults Requested none History Surgery Operation Date: 07/30/21 11:00 Proposed Procedures p Ureteral Stent Insertion/Removal(Right) - Janay Green MD Height/Weight Height: 5 ft 11 in Weight: 82.7 kg Allergies Allergy/AdvReac Type Severity Reaction Status Date / Time Sumvdnv-Uoo-Brh Reductase AdvReac Severe MUSCLE Verified 07/30/21 01:29 Inhibitor CRAMPS, WEAKNESS Medications Home Medications Medication Instructions Recorded Confirmed Last Taken amlodipine 10 mg tablet 10 mg PO DAILY 07/29/21 07/29/21 Unknown aspirin 81 mg tablet,delayed 81 mg PO DAILY 07/29/21 07/29/21 Unknown release losartan 50 mg tablet 50 mg PO DAILY 07/29/21 07/29/21 Unknown Active Medications Generic Name Dose Route Start Last Admin Trade Name Freq PRN Reason Stop Dose Admin Amlodipine Besylate 10 mg 07/30/21 09:00 07/30/21 08:53 Amlodipine Besylate 5 Mg Tab PO 08/29/21 08:59 10 mg DAILY MAGNO Administration Aspirin 81 mg 07/30/21 09:00 07/30/21 08:53 Aspirin 81 Mg Ectab PO 08/29/21 08:59 81 mg DAILY MAGNO Administration Enoxaparin Sodium 40 mg 07/30/21 09:00 07/30/21 10:04 Enoxaparin Inj 40 Mg/0.4 Ml Syr SQ 08/29/21 08:59 Not Given QAM MAGNO Lorazepam 0.5 mg in 1 mls @ 1 mls/min 07/30/21 01:05 07/30/21 02:33 Ativan IV 08/29/21 01:04 1 mls/min Q4H PRN Administration Anxiety/Agitation Potassium Chloride 40 meq/ 1,020 mls @ 60 mls/hr 07/30/21 01:45 07/30/21 10:28 Sodium Chloride IV 08/29/21 01:44 0 mls/hr .Q17H MAGNO Infusion Losartan Potassium 50 mg 07/30/21 09:00 07/30/21 08:53 Losartan Potassium 50 Mg Tab PO 08/29/21 08:59 50 mg DAILY MAGNO Administration Morphine Sulfate 4 mg 07/30/21 04:59 07/30/21 09:28 Morphine Sulfate 4 Mg/Ml 1 Ml Carp\Vial IV 08/13/21 01:04 4 mg Q3H PRN Administration Pain Oxycodone HCl 5 - 10 mg 07/30/21 01:05 07/30/21 04:05 Oxycodone Hcl Ir 5 Mg Tab (Immediate Release) PO 08/13/21 01:04 10 mg QID PRN Administration Pain Past Medical History Medical History HTN (hypertension) Hyperlipidemia DELICIA (obstructive sleep apnea) Paroxysmal atrial fibrillation Past Family History Family History Other Cancer Diabetes Hypertension Stroke Past Surgical History Surgical History H/O detached retina repair History of cataract surgery Status post cryoablation Pulmonary vein isolation ablation in 2017 and 2017; [facility] [place]. Roman Social History Smoking Status: Former smoker Do You Dip or Chew Tobacco: No Smoking End Date: Pt. quit smoking 37 years ago Hx Alcohol Use: Yes Alcohol type: wine alcohol intake frequency: 0-2 drinks per day Alcohol Intake Frequency Comment: Pt. drinks wine daily to several times/week Hx Substance Use: No substance use type: does not use Physical Exam Vital Signs Last Vital Signs Temp 36.7 C 07/30/21 07:07 Pulse 73 07/30/21 07:58 Resp 18 07/30/21 07:07 BP 120/73 07/30/21 07:07 Pulse Ox 98 07/30/21 07:07 Testing Laboratory Results 07/29/21 20:19 07/29/21 20:19 Hemoglobin A1c 5.2 % (4.5-5.6) 07/29/21 20:19 Urine Color Yellow 07/29/21 19:51 Urine Appearance Clear (Clear) 07/29/21 19:51 Urine pH 7.5 (4.5-7.5) 07/29/21 19:51 Ur Specific [place] 1.015 (1.000-1.030) 07/29/21 19:51 Urine Protein Negative (Negative) 07/29/21 19:51 Urine Glucose (UA) Negative (Negative) 07/29/21 19:51 Urine Ketones Trace (Negative) H 07/29/21 19:51 Urine Nitrite Negative (Negative) 07/29/21 19:51 Ur Leukocyte Esterase Negative (Negative) 07/29/21 19:51 Urine WBC (Auto) 1-5 /hpf (0-5) 07/29/21 19:51 Urine RBC (Auto) 5-10 /hpf (0-4) H 07/29/21 19:51 U Hyaline Cast (Auto) 1-5 /lpf (0-5) 07/29/21 19:51 U Epithel Cells (Auto) 10-20 /lpf (0-5) H 07/29/21 19:51 Urine Bacteria (Auto) Negative (Negative) 07/29/21 19:51 Electrocardiogram Date: 07/30/21 SR with sinus arrhythmia, rate [address] SCAN OF THE ABDOMEN AND PELVIS WITHOUT IV CONTRAST CLINICAL HISTORY: Right flank pain. COMPARISON STUDY: No priors. TECHNIQUE: CT scan of the abdomen and pelvis is performed from the lung bases to the proximal femora. Images are reviewed in the axial, sagittal, and coronal planes. IV contrast was not administered for this examination. A dose lowering technique was utilized adhering to the principles of ALARA. CT DOSE: 402.32 mGy.cm FINDINGS: Lung bases: The heart is normal in size and without pericardial effusion. The lung bases are clear. There is a tiny hiatal hernia. Liver: The unenhanced liver is normal in size, contour, and attenuation. There is no intrahepatic biliary ductal dilatation. Gallbladder: Unremarkable. Spleen: Normal in size and attenuation. Pancreas: Unremarkable. Adrenal glands: Unremarkable. Kidneys: The unenhanced kidneys are normal in size patchy there is a 6 mm obstructing calculus in the distal right ureter located just above the vesicoureteral junction seen on image #[id number]. This causes mild to moderate right hydroureteronephrosis. There is an additional 4 mm nonobstructing calculus in the right upper pole. No left renal calculi are identified and there is no left- sided hydronephrosis. Renal sinus cysts are noted on the left. There is no evidence of contour deforming renal mass lesion. Abdominal vasculature: The abdominal aorta is normal in course and caliber noting mild atherosclerotic calcification. Bowel: There is no bowel obstruction. The appendix is well-visualized and normal. Peritoneum: There is no intraperitoneal free air or abdominal ascites. Mild mes enteric haziness is nonspecific and may represent a chronic panniculitis. Lymphadenopathy: None. Pelvic viscera: The prostate gland is mildly enlarged. The bladder is normal as visualized. Surgical clips are noted along the course of the spermatic cord. Skeletal structures: No lytic or blastic lesions are seen. There is mild to moderate lumbosacral spondylosis, greatest at L5-S1 where there is moderate disc space narrowing, endplate sclerosis, and a posterior disc osteophyte complex. Sclerotic change is noted in the pubic symphysis. IMPRESSION: 1. There is a 6 mm obstructing calculus in the distal right ureter. This causes mild to moderate right hydroureteronephrosis. 2. There is additional nonobstructing calculus in the right kidney. 3. No left renal calculi are identified. 4. Additional findings as above. ACT 112: Negative or not required by law. Electronically signed by: Ricardo Bishop M.D. 07/29/2021 8:24 PM Dictated: 07/29/212017Transcribed: 07/29/212017
[2021-07-30] MEDS ORDERED: ePHEDrine sulfate 50 MG/ML AMP IV PRN (10:18)
[2021-07-30] MEDS ORDERED: MEPERIDINE HCL 25 MG/ML CARP/VIAL IV PRN (10:18)
[2021-07-30] MEDS ORDERED: fentaNYL citrate 100 MCG/2 ML VIAL IV PRN (10:18)
[2021-07-30] MEDS ORDERED: ONDANSETRON INJ 2 MG/ML 2 ML VIAL IV PRN (10:18)
[2021-07-30] MEDS ORDERED: ATROPINE SULFATE 0.1 MG/ML 10ML SYR IV PRN (10:18)
[2021-07-30] MEDS ORDERED: PHENYLEPHRINE 100MCG/ML 5ML SYR IV PRN (10:18)
[2021-07-30] MEDS ORDERED: LABETALOL HCL IV 5 MG/ML 20ML IV PRN (10:18)
[2021-07-30] MEDS ORDERED: HYDROmorphone INJ 1 MG/ML SYRINGE IV PRN (10:18)
[2021-07-30] MEDS ORDERED: ceFAZolin 2000MG 2,000 MG/15 ML SYR IV ONE ×2 (10:43→11:04)
[2021-07-30] MEDS ORDERED: DIATRIZOATE MEGLUMINE 30% 100ML VIAL INSTIL PRN (11:06)
--- NOTE | 2021-07-30 11:30 | Post Operative Brief Note ---
PG Immediate Post Op with CF Date of Surgery July 30, 2021 Pre & Post Diagnosis Operation Date: 07/30/21 11:00 Pre-Op Diagnosis: Right ureteral stone Post-Op Diagnosis: Right ureteral stone I identified the patient and participated in the time-out.: Yes Procedure Operation Date: 07/30/21 11:00 Actual Procedures p Right Ureteral Stent Insertion, Laser lithotripsy, right ureteroscopy(Right) - Janay Green MD Surgeon Janay Green MD Stacker Driver none Estimated Blood Loss 0 Findings Consistent with Post-Op Diagnosis Right ureteral stone Specimens Specimen Description: A. right ureteral stone for chemical analysis
--- NOTE | 2021-07-30 11:34 | Operative Report ---
PG Post Operative Report Pre & Post Diagnosis Operation Date: 07/30/21 11:00 Pre-Op Diagnosis: Right ureteral stone Post-Op Diagnosis: Right ureteral stone I identified the patient and participated in the time-out.: Yes Procedure Operation Date: 07/30/21 11:00 Actual Procedures p Right Ureteral Stent Insertion, Laser lithotripsy, right ureteroscopy(Right) - Janay Green MD Surgeon Janay Green MD Shuttle Final Inspector none Estimated Blood Loss 0 Findings Consistent with Post-Op Diagnosis Right ureteral stone Specimens right ureteral stone Drains 6Fr x 26 cm right ureteral stent Anesthesia Type General Indications right ureteral stone Description of Procedure The patient was admitted with uncontrolled pain secondary to a 6mm right ureteral stone. Risks and benefits were explained and he elected to proceed to the OR for the above. He was brought to the OR suite and underwent appropriate anesthesia. He was then prepped and draped. A 22 Fr rigid cystoscope was used to examine the urethra and bladder. This was within normal limits. A wire was passed to the level of the kidney. Over this a Uromax balloon was used to dilate the distal right ureter. I 3cc syringe with contrast was used to inflate the balloon under fluoroscopy. I was then able to pass a semirigid ureteroscope to the level of the stone. Using a 365 micron fiber I was able to fragment the stone into small pieces. A basket was then used to remove the remaining fragments. When all fragments were removed a 6Fr x 26 cm stent was placed over the wire securing a nice coil in the bladder and kidney. The bladder was drained. He was transferred to PACU in stable condition. I attest to the content of the Intraoperative Record and any orders documented therein. Any exceptions are noted below.
--- NOTE | 2021-07-30 11:56 | Anesthesiology Progress Note ---
Date of Service July 30, 2021 Anesthesia Post Procedure Vital Signs Vital Signs: Temp Pulse Pulse Pulse Resp BP BP 07/30/21 11:45 72 12 120/70 07/30/21 11:35 37.2 C 62 12 108/67 07/30/21 07:58 73 07/30/21 07:07 36.7 C 64 18 120/73 07/30/21 02:51 36.9 C 79 18 142/87 H 07/30/21 01:10 93 H 07/30/21 00:53 37.2 C 100 H 20 149/92 H 07/30/21 00:50 37.2 C 100 H 20 149/92 H 07/30/21 00:20 88 130/92 07/29/21 23:00 94 H 13 139/99 07/29/21 22:00 86 22 169/112 H 07/29/21 21:49 90 07/29/21 20:00 79 14 07/29/21 17:47 36.7 C 100 H 20 161/108 H BP Pulse Ox Pulse Ox 07/30/21 11:45 100 07/30/21 11:35 99 07/30/21 07:58 07/30/21 07:07 98 07/30/21 02:51 98 07/30/21 01:10 07/30/21 00:53 97 97 07/30/21 00:50 97 07/30/21 00:20 96 07/29/21 23:00 97 07/29/21 22:00 99 07/29/21 21:49 174/108 H 99 07/29/21 20:00 179/105 H 98 07/29/21 17:47 99 Pain Intensity Back: Pain Intensity: 1 Right Flank: Pain Intensity: 1 Transfer of Care Handoff Completed per policy Notes Mental Status: alert / awake / arousable Patient Amnestic to Procedure: Yes Nausea / Vomiting: adequately controlled Pain: adequately controlled Airway Patency, RR, SpO2: stable & adequate BP & HR: stable & adequate Hydration State: stable & adequate Anesthetic Complications: no major complications apparent and Pt Satisfied with anesthetic care
--- NOTE | 2021-07-30 11:58 | Fluoroscopy Report ---
FL retrograde includes kub HISTORY: 60 years-old Male RT SDIE STENT STATUS post placement of a right ureteral stent COMPARISON: CT abdomen and pelvis 07/29/2021 TECHNIQUE: 2 spot fluoroscopic images of the abdomen were obtained utilizing 9.7 seconds fluoroscopy time FINDINGS: A right-sided ureteroscope is noted with guidewire within the right ureter. The last image demonstrat es the proximal portion of a right ureteral stent which appears to be in satisfactory positioning. Th e distal portion is not imaged. IMPRESSION: Fluoroscopic assistance as above. ACT 112: Negative or not required by law. The above report was generated using voice recognition software. It may contain grammatical, syntax o r spelling errors. Electronically signed by: Thiago Bruce M.D. 07/30/2021 11:57 AM
[2021-07-30 15:28] LABS: Basophils # (auto) 0.01 K/uL (0-0.2); Basophils % (auto) 0.1 %; Eosinophils # (auto) 0.01 K/uL (0-0.5); Eosinophils % (auto) 0.1 %; Hematocrit (blood only) 41.5 % (42-52); Hemoglobin 14.3 g/dL (14.0-18.0); Immature Granulocytes # (auto) 0.01 K/uL (0.00-0.02); Immature Granulocytes % (auto) 0.1 %; Lymphocytes % (auto) 12.5 %; Mean Corpuscular Hemoglobin 33.6 pg (25-34); Mean Corpuscular Hgb Conc 34.5 g/dL (32-36); Mean Corpuscular Volume 97.6 fL (80-100); Monocytes # (auto) 0.74 K/uL (0.11-0.59); Monocytes % (auto) 10.3 %; Neutrophils # (auto) 5.51 K/uL (1.4-6.5); Neutrophils % (auto) 76.9 %; Platelet Count 177 K/uL (130-400); RDW Coefficient of Variation 13.2 % (11.5-14.5); Red Blood Count 4.25 M/uL (4.7-6.1); White Blood Count 7.18 K/uL (4.8-10.8)
[2021-07-30 15:44] LABS: BUN Creatinine Ratio 8.8 (10-20); Calcium 8.4 mg/dl (8.5-10.1); Est GFR (African American) 73.5 ml/min; Est GFR (Non-African American) 63.4 ml/min; Potassium 3.8 mmol/L (3.5-5.1)
--- NOTE | 2021-07-30 16:31 | Hospitalist Progress Note ---
Date of Service July 30, 2021 Assessment & Plan (1) Right ureteral calculus: Plan: Underwent right ureteral stent insertion today with Dr. Green. Recovering well in the room. Will follow up with urology as outpatient for stent removal per recommendation. Continue supportive care as needed. (2) Hydronephrosis, right: Plan: Will likely resolve in postop state. Repeat imaging per urology recommendation. (3) Paroxysmal atrial fibrillation: Plan: Patient has a history of paroxysmal atrial fibrillation status post pulmonary vein isolation in March 2017. He is reportedly very symptomatic with his atrial arrhythmias. He is remained in normal sinus rhythm since admission. Will discontinue telemetry at this time. (4) HTN (hypertension): Plan: Controlled, continue amlodipine and losartan per home regimen. (5) DANK (acute kidney injury): Plan: Mild DANK likely postobstructive in nature. Trend BMP in a.m. status post laser lithotripsy today and IV fluids. (6) DVT prophylaxis: Plan: SCDs/ambulation Full code Disposition-to home tomorrow [facility] and Anticipated Discharge Date Admission Date: July 29, 2021 Subjective None 60-year-old man presented with hydronephrosis secondary to ureteral stone. He was taken to the OR for right ureteroscopy, laser lithotripsy and stent placement. He was seen postoperatively and tolerating p.o. well. He reported no pain and no nausea. Review of Systems Review of Systems: At least ten systems were reviewed and negative except as indicated in HPI above. Physical Exam Physical Exam: CONSTITUTIONAL: WNWD, vitals as above, generally well- appearing EYES: normal conjunctivae, no scleral icterus ENT: external ear and nose normal, MMM NECK: trachea midline RESPIRATORY: clear to auscultation bilaterally, no crackles, rales or wheezes, normal respiratory effort CARDIOVASCULAR: regular rate and rhythm, S1 and 2 heard without murmurs, gallops or rubs, no JVD, no peripheral edema CHEST: inspection of chest was normal GASTROINTESTINAL: soft, nontender, ND,no guarding, no CVA tenderness MUSCULOSKELETAL: strength 5/5 throughout, head is normocephalic and atraumatic SKIN: warm and dry NEUROLOGIC: CN 2-12 grossly intact, normal cognition, normal speech, no tremor PSYCHIATRIC: alert cooperative and oriented to person, place and time. Euthymic mood, makes good eye contact, language grossly intact, recent and remote memory grossly intact. Results & Data Results & Data ([facility]) Vital Signs (Past 12 Hours) Vital Signs Temp Pulse Pulse Pulse Resp BP Pulse Ox 07/30/21 16:08 36.3 C L 68 16 129/80 97 07/30/21 15:01 63 07/30/21 13:00 36.7 C 59 L 18 124/79 98 07/30/21 12:20 36.3 C L 62 18 142/90 H 96 07/30/21 12:05 36.8 C 62 12 132/89 96 07/30/21 11:55 64 15 130/91 98 07/30/21 11:45 72 12 120/70 100 07/30/21 11:35 37.2 C 62 12 108/67 99 07/30/21 07:58 73 07/30/21 07:07 36.7 C 64 18 120/73 98 Laboratory Results Short CBC 07/29/21 07/30/21 Range/Units 20:19 15:12 WBC 7.73 7.18 (4.8-10.8) K/uL Hgb 16.3 14.3 (14.0-18.0) g/dL Hct 46.7 41.5 L (42-52) % Plt Count 179 177 (130-400) K/uL BMP 07/29/21 07/30/21 20:19 15:12 Sodium 138 139 Potassium 3.6 3.8 Chloride 107 108 H Carbon Dioxide 24 26 BUN 10 11 Creatinine 0.91 1.23 D Glucose 111 H 100 H Calcium 9.5 8.4 L Liver Function 07/29/21 Range/Units 20:19 Total Bilirubin 0.8 (0.2-1) mg/dl Direct Bilirubin 0.2 (0-0.2) mg/dl AST 29 (15-37) U/L ALT 60 (12-78) U/L Alkaline Phosphatase 108 (45-117) U/L Albumin 4.4 (3.4-5.0) gm/dl Urine 07/29/21 Range/Units 19:51 Urine Color Yellow Urine Appearance Clear (Clear) Urine pH 7.5 (4.5-7.5) Ur Specific [place] 1.015 (1.000-1.030) Urine Protein Negative (Negative) Urine Glucose (UA) Negative (Negative) Medications Administered Current Inpatient Medications Acetaminophen (Acetaminophen 325 Mg Tab) 650 mg PO Q4H PRN PRN Reason: Pain or Fever Stop: 08/29/21 01:04 Amlodipine Besylate (Amlodipine Besylate 5 Mg Tab) 10 mg PO DAILY [facility] Stop: 08/29/21 08:59 Last Admin: 07/30/21 08:53 Dose: 10 mg Documented by: Aspirin (Aspirin 81 Mg Ectab) 81 mg PO DAILY [facility] Stop: 08/29/21 08:59 Last Admin: 07/30/21 08:53 Dose: 81 mg Documented by: Atropine Sulfate (Atropine Sulfate 0.1 Mg/Ml 10ml Syr) 0.5 mg IV Q1M PRN PRN Reason: PACU Use-HR<40 &/or Bradycardi Stop: 07/30/21 18:18 Ciprofloxacin (Ciprofloxacin 250 Mg Tab) 250 mg PO BID [facility]; Protocol Stop: 08/04/21 20:59 Diatrizoate Meglumine (Diatrizoate Meglumine 30% 100ml Vial) 25 ml INSTIL UD PRN PRN Reason: radiology Stop: 08/03/21 11:05 Last Admin: 07/30/21 11:23 Dose: 10 ml Documented by: Enoxaparin Sodium (Enoxaparin Inj 40 Mg/0.4 Ml Syr) 40 mg SQ QAM MAGNO Stop: 08/29/21 08:59 Last Admin: 07/30/21 10:04 Dose: Not Given Documented by: Ephedrine Sulfate (Ephedrine Sulfate 50 Mg/Ml Amp) 5 mg IV Q5M PRN PRN Reason: PACU Use Only-SBP<90 mmHg Stop: 07/30/21 18:18 Fentanyl Citrate (Fentanyl Citrate 100 Mcg/2 Ml Vial) 25 mcg IV Q5M PRN PRN Reason: PACU Use Only-Pain Stop: 07/30/21 18:18 Hydromorphone HCl (Hydromorphone Inj 1 Mg/Ml Syringe) 0.25 mg IV Q5M PRN PRN Reason: PACU Use Only-Pain Stop: 07/30/21 18:18 Promethazine HCl 12.5 mg/ (Sodium Chloride) 50.5 mls @ 202 mls/hr IV Q6H PRN PRN Reason: Nausea And Vomiting Stop: 08/29/21 01:04 Lorazepam (Ativan) 0.5 mg in 1 mls @ 1 mls/min IV Q4H PRN PRN Reason: Anxiety/Agitation Stop: 08/29/21 01:04 Last Admin: 07/30/21 02:33 Dose: 1 mls/min Documented by: Potassium Chloride 40 meq/ (Sodium Chloride) 1,020 mls @ 60 mls/hr IV .Q17H MAGNO Stop: 08/29/21 01:44 Last Infusion: 07/30/21 12:24 Dose: 60 mls/hr Documented by: Labetalol HCl (Labetalol Hcl Iv 5 Mg/Ml 20ml) 5 mg IV Q5M PRN PRN Reason: PACU Use-SBP>160 or DBP>100 Stop: 07/30/21 18:18 Losartan Potassium (Losartan Potassium 50 Mg Tab) 50 mg PO DAILY MAGNO Stop: 08/29/21 08:59 Last Admin: 07/30/21 08:53 Dose: 50 mg Documented by: Meperidine HCl (Meperidine Hcl 25 Mg/Ml Carp/Vial) 12.5 mg IV Q5M PRN PRN Reason: PACU Use Only-Pain/Shivering Stop: 07/30/21 18:18 Morphine Sulfate (Morphine Sulfate 4 Mg/Ml 1 Ml Carp\Vial) 4 mg IV Q3H PRN PRN Reason: Pain Stop: 08/13/21 01:04 Last Admin: 07/30/21 09:28 Dose: 4 mg Documented by: Ondansetron HCl (Ondansetron Inj 2 Mg/Ml 2 Ml Vial) 4 mg IV ONCE PRN PRN Reason: PACU Use Only-Nausea/Vomiting Stop: 07/30/21 18:18 Oxycodone HCl (Oxycodone Hcl Ir 5 Mg Tab (Immediate Release)) 5 - 10 mg PO QID PRN PRN Reason: Pain Stop: 08/13/21 01:04 Last Admin: 07/30/21 04:05 Dose: 10 mg Documented by: Phenylephrine HCl (Phenylephrine 100mcg/Ml 5ml Syr) 100 mcg IV Q5M PRN PRN Reason: PACU Use Only-SBP<90 or HR>70 Stop: 07/30/21 18:18 Tamsulosin HCl (Tamsulosin Hcl 0.4 Mg Cap) 0.4 mg PO HS MAGNO Stop: 08/29/21 20:59
[2021-07-30] MEDS: CIPROFLOXACIN 250 MG TAB PO SCH (20:41)
[2021-07-30] MEDS ORDERED: TAMSULOSIN HCL 0.4 MG CAP PO SCH (21:00)
--- NOTE | 2021-07-31 07:17 | Electrocardiogram Report ---
Test Reason : Blood Pressure : / mmHG Vent. Rate : 067 BPM Atrial Rate : 067 BPM P-R Int : 150 ms QRS Dur : 092 ms QT Int : 434 ms P-R-T Axes : 046 -03 020 degrees QTc Int : 458 ms Normal sinus rhythm with sinus arrhythmia Normal ECG When compared with ECG of 13-FEB-2018 11:34, Criteria for Septal infarct are no longer Present Confirmed by Colin Brennan ([id number]) on 07/31/2021 7:17:33 AM Referred By: REFERRED SELF Confirmed By:Colin Brennan
[2021-07-31] MEDS: CIPROFLOXACIN 250 MG TAB PO SCH (07:45)
[2021-07-31] MEDS: ASPIRIN 81 MG ECTAB PO SCH (07:46)
[2021-07-31] MEDS: amLODIPine BESYLATE 5 MG TAB PO SCH (07:46)
[2021-07-31] MEDS: LOSARTAN POTASSIUM 50 MG TAB PO SCH (07:47)
[2021-07-31] MEDS: ENOXAPARIN INJ 40 MG/0.4 ML SYR SQ SCH (08:14)
[2021-07-31 08:19] LABS: Hematocrit (blood only) 43.8 % (42-52); Hemoglobin 15.4 g/dL (14.0-18.0); Mean Corpuscular Hemoglobin 33.3 pg (25-34); Mean Corpuscular Volume 94.6 fL (80-100); Mean Platelet Volume 10.2 fL (7.4-10.4); Platelet Count 156 K/uL (130-400); RDW Standard Deviation 45.2 fL (36.4-46.3); Red Blood Count 4.63 M/uL (4.7-6.1); White Blood Count 6.63 K/uL (4.8-10.8)
[2021-07-31 08:27] LABS: Mean Corpuscular Hgb Conc 35.2 g/dL (32-36)
[2021-07-31 08:35] LABS: BUN Creatinine Ratio 16.4 (10-20); Calcium 8.4 mg/dl (8.5-10.1); Creatinine Clr Calc Pharmacy 88.1 ml/min; Est GFR (African American) 100.4 ml/min; Est GFR (Non-African American) 86.7 ml/min; Potassium 3.8 mmol/L (3.5-5.1)
--- NOTE | 2021-07-31 10:41 | Discharge Summary ---
Date of Service July 31, 2021 Admission HPI Per Admitting Provider Patient is 60-year-old male with PMH paroxysmal atrial fibrillation s/p pulmonary vein isolation cryoablation in 2017 in 2018, HTN, HLD, DELICIA presented to ER with complaint of right testicle and right flank pain today. Patient states approximately 1 month ago had right mid to lower back pain and he thought he may have pulled a muscle and pain resolved in a day. Reports today he started with sudden onset of sharp right testicle pain then developed pain to right flank as well. Reports had nausea and vomiting today. Reports is urinating and denies dysuria, urinary frequency, hematuria. No history of kidney stones in the past. Denies fever/chills, diaphoresis, diarrhea, constipation, GARCIA, dizziness, syncope, vision changes, neck pain, CP, SOB, orthopnea, palpitations, cough, sore throat, choking, otalgia, rhinorrhea, other abdominal pain, paresthesias, weakness, extremity weakness, extremity edema, rashes, scrotal discoloration or edema, penile discharge. In ER CT the pelvis revealed a 6 mm right distal ureteral calculus, mild to moderate right hydronephrosis. Patient being noted for further evaluation and treatment Admission Exam Per Admitting Provider General: no distress, WDWN Head: normocephalic, atraumatic Eyes: PERRL, EOM's intact, conjunctiva non-injected, anicteric ENT: normal inspection external ears, nose, mucous membranes moist Neck: supple, trachea midline Lungs: clear, no respiratory distress, no wheezing/rhonchi/rales CV: RRR, no murmur, no pretibial edema Abd: normal BS, soft, non-tender, no CVA tenderness at this time Ext: no cyanosis, no calf tenderness Neuro: A&O x 3, no focal deficits noted, normal affect Skin: warm, dry Principal Diagnosis Obstructive Uropathy on right 2/2 ureteral stone s/p ureteral stent placement Acute kidney injury-resolved Discharge Exam CONSTITUTIONAL: WNWD, vitals as above, generally well-appearing EYES: normal conjunctivae, no scleral icterus ENT: external ear and nose normal, MMM NECK: trachea midline RESPIRATORY: clear to auscultation bilaterally, no crackles, rales or wheezes, normal respiratory effort CARDIOVASCULAR: regular rate and rhythm, S1 and 2 heard without murmurs, gallops or rubs, no JVD, no peripheral edema CHEST: inspection of chest was normal GASTROINTESTINAL: soft, nontender, ND,no guarding, no CVA tenderness MUSCULOSKELETAL: strength 5/5 throughout, head is normocephalic and atraumatic SKIN: warm and dry NEUROLOGIC: CN 2-12 grossly intact, normal cognition, normal speech, no tremor PSYCHIATRIC: alert cooperative and oriented to person, place and time. Euthymic mood, makes good eye contact, language grossly intact, recent and remote memory grossly intact. Discharge Data Allergies Allergy/AdvReac Type Severity Reaction Status Date / Time [id number] Reductase AdvReac Severe MUSCLE Verified 07/30/21 01:29 Inhibitor CRAMPS, WEAKNESS Consultations 07/29/21 21:12 ED Decision to Admit Stat 07/30/21 01:05 Consult Urology Routine Procedures Performed Operation Date: 07/30/21 11:00 Actual Procedures p Right Ureteral Stent Insertion, Laser lithotripsy, right ureteroscopy(Right) - Janay Green MD Ordered Studies Laboratory Results WBC 6.63 K/uL (4.8-10.8) 07/31/21 08:07 RBC 4.63 M/uL (4.7-6.1) L 07/31/21 08:07 Hgb 15.4 g/dL (14.0-18.0) 07/31/21 08:07 Hct 43.8 % (42-52) 07/31/21 08:07 MCV 94.6 fL (80-100) 07/31/21 08:07 MCH 33.3 pg (25-34) 07/31/21 08:07 MCHC 35.2 g/dL (32-36) 07/31/21 08:07 RDW Std Deviation 45.2 fL (36.4-46.3) 07/31/21 08:07 RDW Coeff of Indra 13.0 % (11.5-14.5) 07/31/21 08:07 Plt Count 156 K/uL (130-400) 07/31/21 08:07 MPV 10.2 fL (7.4-10.4) 07/31/21 08:07 Immature Gran % (Auto) 0.1 % 07/30/21 15:12 Neut % (Auto) 76.9 % 07/30/21 15:12 Lymph % (Auto) 12.5 % 07/30/21 15:12 [place] % (Auto) 10.3 % 07/30/21 15:12 Eos % (Auto) 0.1 % 07/30/21 15:12 Baso % (Auto) 0.1 % 07/30/21 15:12 Neut # (Auto) 5.51 K/uL (1.4-6.5) 07/30/21 15:12 Lymph # (Auto) 0.90 K/uL (1.2-3.4) L 07/30/21 15:12 [place] # (Auto) 0.74 K/uL (0.11-0.59) H 07/30/21 15:12 Eos # (Auto) 0.01 K/uL (0-0.5) 07/30/21 15:12 Baso # (Auto) 0.01 K/uL (0-0.2) 07/30/21 15:12 Immature Gran # (Auto) 0.01 K/uL (0.00-0.02) 07/30/21 15:12 Absolute Nucleated RBC Cancelled 07/31/21 07:21 Nucleated RBC % (auto) Cancelled 07/31/21 07:21 Platelet Estimate Cancelled 07/31/21 07:21 Sodium 137 mmol/L (136-145) 07/31/21 07:21 Potassium 3.8 mmol/L (3.5-5.1) 07/31/21 07:21 Chloride 108 mmol/L (98-107) H 07/31/21 07:21 Carbon Dioxide 22 mmol/L (21-32) 07/31/21 07:21 Anion Gap 7.0 (3-11) 07/31/21 07:21 BUN 16 mg/dl (7-18) 07/31/21 07:21 Creatinine 0.95 mg/dl (0.6-1.4) 07/31/21 07:21 Est Cr Clr Drug Dosing 88.1 ml/min 07/31/21 07:21 Est GFR ( Amer) 100.4 ml/min 07/31/21 07:21 Est GFR (Non-Af Amer) 86.7 ml/min 07/31/21 07:21 BUN/Creatinine Ratio 16.4 (10-20) 07/31/21 07:21 Glucose 106 mg/dl (70-99) H 07/31/21 07:21 Estimat Average Glucose 103 mg/dl 07/29/21 20:19 Hemoglobin A1c 5.2 % (4.5-5.6) 07/29/21 20:19 Calcium 8.4 mg/dl (8.5-10.1) L 07/31/21 07:21 Magnesium 2.0 mg/dl (1.8-2.4) 07/30/21 15:12 Total Bilirubin 0.8 mg/dl (0.2-1) 07/29/21 20:19 Direct Bilirubin 0.2 mg/dl (0-0.2) 07/29/21 20:19 AST 29 U/L (15-37) 07/29/21 20:19 ALT 60 U/L (12-78) 07/29/21 20:19 Alkaline Phosphatase 108 U/L (45-117) 07/29/21 20:19 Total Protein 8.0 gm/dl (6.4-8.2) 07/29/21 20:19 Albumin 4.4 gm/dl (3.4-5.0) 07/29/21 20:19 Lipase 95 U/L (73-393) 07/29/21 20:19 Specimen Hemolysis 07/31/21 07:21 Urine Color Yellow 07/29/21 19:51 Urine Appearance Clear (Clear) 07/29/21 19:51 Urine pH 7.5 (4.5-7.5) 07/29/21 19:51 Ur Specific [place] 1.015 (1.000-1.030) 07/29/21 19:51 Urine Protein Negative (Negative) 07/29/21 19:51 Urine Glucose (UA) Negative (Negative) 07/29/21 19:51 Urine Ketones Trace (Negative) H 07/29/21 19:51 Urine Blood 1+ (Negative) H 07/29/21 19:51 Urine Nitrite Negative (Negative) 07/29/21 19:51 Urine Bilirubin Negative (Negative) 07/29/21 19:51 Urine Urobilinogen Negative (Negative) 07/29/21 19:51 Ur Leukocyte Esterase Negative (Negative) 07/29/21 19:51 Urine WBC (Auto) 1-5 /hpf (0-5) 07/29/21 19:51 Urine RBC (Auto) 5-10 /hpf (0-4) H 07/29/21 19:51 U Hyaline Cast (Auto) 1-5 /lpf (0-5) 07/29/21 19:51 U Epithel Cells (Auto) 10-20 /lpf (0-5) H 07/29/21 19:51 Urine Bacteria (Auto) Negative (Negative) 07/29/21 19:51 COVID-19 Eval Order Covid19 at [facility] 07/29/21 21:19 SARS-CoV-2 (PCR) NEGATIVE (Negative) 07/29/21 21:19 Impressions Abdomen/Pelvis CT 07/29/21 19:40 CT SCAN OF THE ABDOMEN AND PELVIS WITHOUT IV CONTRAST CLINICAL HISTORY: Right flank pain. COMPARISON STUDY: No priors. TECHNIQUE: CT scan of the abdomen and pelvis is performed from the lung bases to the proximal femora. Images are reviewed in the axial, sagittal, and coronal planes. IV contrast was not administered for this examination. A dose lowering technique was utilized adhering to the principles of ALARA. CT DOSE: 402.32 mGy.cm FINDINGS: Lung bases: The heart is normal in size and without pericardial effusion. The lung bases are clear. There is a tiny hiatal hernia. Liver: The unenhanced liver is normal in size, contour, and attenuation. There is no intrahepatic biliary ductal dilatation. Gallbladder: Unremarkable. Spleen: Normal in size and attenuation. Pancreas: Unremarkable. Adrenal glands: Unremarkable. Kidneys: The unenhanced kidneys are normal in size patchy there is a 6 mm obstructing calculus in the distal right ureter located just above the vesicoureteral junction seen on image #[id number]. This causes mild to moderate right hydroureteronephrosis. There is an additional 4 mm nonobstructing calculus in the right upper pole. No left renal calculi are identified and there is no left- sided hydronephrosis. Renal sinus cysts are noted on the left. There is no evidence of contour deforming renal mass lesion. Abdominal vasculature: The abdominal aorta is normal in course and caliber noting mild atherosclerotic calcification. Bowel: There is no bowel obstruction. The appendix is well-visualized and normal. Peritoneum: There is no intraperitoneal free air or abdominal ascites. Mild mesenteric haziness is nonspecific and may represent a chronic panniculitis. Lymphadenopathy: None. Pelvic viscera: The prostate gland is mildly enlarged. The bladder is normal as visualized. Surgical clips are noted along the course of the spermatic cord. Skeletal structures: No lytic or blastic lesions are seen. There is mild to moderate lumbosacral spondylosis, greatest at L5-S1 where there is moderate disc space narrowing, endplate sclerosis, and a posterior disc osteophyte complex. Sclerotic change is noted in the pubic symphysis. IMPRESSION: 1. There is a 6 mm obstructing calculus in the distal right ureter. This causes mild to moderate right hydroureteronephrosis. 2. There is additional nonobstructing calculus in the right kidney. 3. No left renal calculi are identified. 4. Additional findings as above. ACT 112: Negative or not required by law. Electronically signed by: Ricardo Bishop M.D. 07/29/2021 8:24 PM Retrograde Pyelogram 07/30/21 00:00 FL retrograde includes kub HISTORY: 60 years-old Male RT SDIE STENT STATUS post placement of a right ureteral stent COMPARISON: CT abdomen and pelvis 07/29/2021 TECHNIQUE: 2 spot fluoroscopic images of the abdomen were obtained utilizing 9.7 seconds fluoroscopy time FINDINGS: A right-sided ureteroscope is noted with guidewire within the right ureter. The last image demonstrates the proximal portion of a right ureteral stent which appears to be in satisfactory positioning. The distal portion is not imaged. IMPRESSION: Fluoroscopic assistance as above. ACT 112: Negative or not required by law. The above report was generated using voice recognition software. It may contain grammatical, syntax or spelling errors. Electronically signed by: Thiago Bruce M.D. 07/30/2021 11:57 AM Hospital Course (1) Right ureteral calculus: (2) Hydronephrosis, right: (3) HTN (hypertension): (4) DANK (acute kidney injury): 60-year-old man presented with right flank pain and testicular pain for a couple of days. Nausea was present and secondary hypertension as a result of renal colic. CT revealed a 6 mm right distal ureteral stone with right nonobstructing lower pole stone with evidence of hydronephrosis. He has no history of prior stones. He was admitted to medicine and urology was consulted. On 07/30, he underwent a right ureteral stent insertion with laser lithotripsy and right ureteroscopy by Dr. Janay Green. He recovered postoperatively without incident. Notably his creatinine was initially 0.91, increased to 1.23 and subsequently resolved post procedurally back to 0.95. At time of discharge she was mentating and ambulating at baseline and tolerating solid foods. He was hemodynamically stable and afebrile and denied any type of stent pain or other issues. He was discharged in stable condition with close primary care follow-up recommended. Urology follow-up in 7 to 10 days was recommended for consideration of removal of ureteral stent. He verbalized understanding of the instructions with intent to comply. Total Time Total Time Spent Total Time Spent (In Minutes): 45 Discharge Plan Discharge Items Patient Disposition: Home - Self-Care Reason For Visit: HTN URG, OBS UROPATHY Discharge Diagnosis: Obstructive Uropathy on right 2/2 ureteral stone Acute kidney injury-resolved Condition on Discharge: Good Activity: Resume your previous activity Non-emergency contact: Primary Care Provider and Urologist Call non-emergency contact if: you have any medication questions, your symptoms worsen, your pain is not controlled, your pain is worsening, your pain is unusual for you, your pain is concerning for you and you have a fever Follow-up/Referrals: Jaime Samuel MD [Primary Care Provider] - Diet: Regular Addtl Attending Provider Instructions: Please take all medications as instructed on discharge as below. You have been given a short course of antibiotics to take post procedurally. It is recommended that you follow-up with your primary care doctor within 1 week of discharge from the hospital. This is to ensure you are still doing well after returning home. If you have any issues, please contact [facility] Urology and follow-up per recommendations below It was a pleasure taking care of you! Please call if you have any questions or problems. You can reach a [facility] hospitalist on duty at [facility] 24 hours a day by calling [phone]. Take care of yourself. Jayne Carlson DO [facility] Hospitalist Addtl Police Clerk Provider Instructions: No physical restrictions. You may shower/bathe. Pain medication PRN Finish your antibiotic. The office will call you for follow-up for your stent removal, which will likely be in 7-10 days. Your urologist will review your stone composition at that time. Pending Studies at Discharge: No Stand-Alone Forms: My [facility] Medications and DC Order Prescriptions: New ciprofloxacin HCl 250 mg Tablet 250 mg PO BID Qty: 6 RF: 0 Continued losartan 50 mg tablet 50 mg PO DAILY RF: 0 aspirin 81 mg tablet,delayed release (DR/EC) 81 mg PO DAILY RF: 0 amlodipine 10 mg tablet 10 mg PO DAILY RF: 0 Discharge Orders: Discharge Order (Routine); Ordered 07/31/21 Ordered By: Jayne Carlson Admission Data Admit Date/Time: 07/29/21 23:03 Attending Provider: Jayne Carlson Admit Provider: Casa Valdovinos Primary Care Provider: Jaime Samuel Other Providers: Casa Valdovinos ; Timmy Penny ; Crescencio Talamantes ; Clement Parra ; Saige Blood ; Dariusz Troncoso ; Ritu Gillespie ; Yue Pompa ; Marylou Green ; Gary Franks ; Hernan Nova ; Petra Farley ; Janay Green ; Carrington Betancourt
--- NOTE | 2021-07-31 11:20 | Urology Progress Note ---
Date of Service July 31, 2021 Assessment & Plan (1) Hydronephrosis with renal and ureteral calculus obstruction: Plan: DOing well post procedure - discharge per urology -f/u for stent removal in the office home on antibiotics x and pain medications Discussed plan with patient. Admission and Anticipated Discharge Date Admission Date: July 29, 2021 Subjective Patient with right ureteral stone s/p right ureteroscopy, laser lithotripsy, and stent placement Doing well today Pain controlled Urine is clearing Review of Systems Review of Systems: NO CP or SOB. See HPI Physical Exam Physical Exam: NAD RRR Nonlabored breathing soft AO x 3 normal mood Results & Data ([facility]) Vital Signs (Past 12 Hours) Vital Signs Temp Pulse Resp BP Pulse Ox 07/31/21 07:44 36.8 C 61 20 152/89 H 96 07/31/21 03:38 36.9 C 84 16 137/85 96 PG Care Time/CCT Total # of Minutes Spent Total Time Spent with Patient: Total time spent is greater than 50% in coor dination of care (as documented) at patient's floor/unit and/or counseling patient: [place] [address] Subseq Hosp Care Lvl 2 Patient Type Established History Expanded Problem Focused Exam Expanded Problem Focused Diagnoses Hydronephrosis with renal and ureteral calculus obstruction N13.2
[2021-08-04 23:42] LABS: Component 2 DNR; Source RIGHT URETERAL STONE
== END 2021-07-31 13:30 | disposition home or self-care (01) | DRG 661 ==
LOC: ED 16:50 → 2W 23:03